=== PATIENT | male | born 1985 | race Caucasian/White ===

== ENCOUNTER 2016-06-27 19:30 | Emergency (ER) | payer SELFPAY ==
[2016-06-27 19:42] VITALS: BP 123/68; PULSE 81; TEMP 97.6; BMI 21.7
[2016-06-27] MEDS ORDERED: LORazepam 0.5 MG TABLET PO ONE (21:48)
[2016-06-27] MEDS ORDERED: ALPRAZolam 0.25 MG TABLET PO ONE (21:49)
[2016-06-27] MEDS ORDERED: ALPRAZolam 0.25 MG TABLET ONE (21:58)
[2016-06-27] MEDS ORDERED: LORazepam 0.5 MG TABLET ONE (21:58)
--- NOTE | 2016-06-27 22:01 | PDOC ---
History of Present Illness - General Chief Complaint: Alcohol intoxication Stated Complaint: DETOX Time Seen by Provider: 06/27/16 21:32 History Source: Patient Exam Limitations: No Limitations - History of Present Illness Initial Comments: CHIEF COMPLAINT: 31 y/o afebrile male with no significant PMH here for detox from heroin. HISTORY OF PRESENT ILLNESS: The patient states he has been using heroin for the past few months after his percocet prescription was cancelled. He states he did 2 bags this morning and now feels horrible. He states he is having cold and hot sweats, he feels anxious and nauseous. He initially went to [facility] to check in for detox but they have no beds. Vital signs on arrival are within normal limits. REVIEW OF SYSTEMS: GENERAL/CONSTITUTIONAL: No fever/chills. No weakness. No weight change. +hot/ cold sweats. HEAD, EYES, EARS, NOSE AND THROAT: No change in vision. No ear pain or discharge. No sore throat. CARDIOVASCULAR: No chest pain or shortness of breath. RESPIRATORY: No cough, wheezing, or hemoptysis. GASTROINTESTINAL: +nausea. No vomiting, diarrhea, constipation. GENITOURINARY: No dysuria, frequency, or change in urination. MUSCULOSKELETAL: No joint or muscle swelling or pain. No neck or back pain. SKIN: No rash or easy bruising. NEUROLOGIC: No headache, vertigo, loss of consciousness, or loss of sensation. PSYCHIATRIC: +anxiety PHYSICAL EXAM: GENERAL: The patient is awake, alert, and fully oriented, in no acute distress. He is ambulatory and speaks quickly. HEAD: Normal with no signs of trauma. ENT: Pupils equal, round and reactive to light, extraocular movements intact, sclera anicteric, conjunctiva clear. Neck supple. LUNGS: Clear to auscultation bilaterally. Normal excursion. No respiratory distress or use of accessory muscles. CV: RRR, S1/S2, no MRG. Cap refill < 2 sec. ABDOMEN: Soft, non-distended, non-tender even to deep palpation, no hepatomegaly or splenomegaly, no masses. EXTREMITIES: Normal range of motion, no edema. NEUROLOGICAL: Normal speech, normal gait. CN II-XII grossly intact. PSYCH: Normal mood, normal affect. SKIN: Warm, dry, normal turgor, no rashes or lesions noted. Past History - Past Medical History Allergies/Adverse Reactions: Allergies Allergy/AdvReac Type Severity Reaction Status Date / Time No Known Allergies Allergy Verified 06/27/16 19:42 Home Medications: Ambulatory Orders NK [No Known Home Medication] 06/27/16 Other medical history: denies - Psycho/Social/Smoking Cessation Hx Anxiety: No Suicidal Ideation: No Smoking History: Unknown if ever smoked Have you smoked in the past 12 months: No Information on smoking cessation initiated: No Hx Alcohol Use: No Drug/Substance Use Hx: No Substance Use Type: None *Physical Exam - Vital Signs Last Vital Signs Temp Pulse Resp BP Pulse Ox 97.6 F 81 20 123/68 98 06/27/16 19:39 06/27/16 19:39 06/27/16 19:39 06/27/16 19:39 06/27/16 19:39 Heart Score/ECG Review - ECG Intrepretation Comment:: Twelve-lead EKG was performed and reviewed by Dr. Ibanez. There is sinus bradycardia with rate of 59bpm. The axis is normal. The intervals are normal. There are no ST or T wave abnormalities. Impression: Otherwise normal twelve-lead EKG ED Treatment Course - LABORATORY CBC & Chemistry Diagram: 06/27/16 21:55 06/27/16 21:55 Medical Decision Making - Medical Decision Making A/P: 31 y/o male here for withdrawal symptoms from heroin. He also wanted detox but confirmed with [facility] there are no beds available at this time. Plan is as follows: 1. Labs 2. U tox 3. PO xanax and ativan Laboratory Tests 06/27/16 22:28 Opiates Screen Positive Benzodiazepines Screen Positive Cocaine Screen Positive labs unremarkable EKG normal Will discharge to home with instructions to call [facility] in the morning to hopefully get a placement. The patient verbalizes understanding of all instructions, has no further questions and is awaiting discharge. *DC/Admit/Observation/Transfer Diagnosis at time of Disposition: Drug abuse and dependence - Discharge Dispostion Disposition: HOME Condition at time of disposition: Improved - Patient Instructions Printed Discharge Instructions: DI for Drug Abuse and Drug Addiction Additional Instructions: Discharge Instructions: -Call [facility] in the morning to see if they have a bed -Return to the ER with any worsening or concerning symptoms
--- NOTE | 2016-06-27 22:25 | PDOC ---
[id number] 98 06/27/16 19:39 06/27/16 19:39 06/27/16 19:39 06/27/16 19:39 06/27/16 19:39 ED Treatment Course - LABORATORY CBC & Chemistry Diagram: 06/27/16 21:55 06/27/16 21:55 - Medications Given in the ED: ED Medications Discontinued Medications Generic Name Dose Route Start Last Admin Trade Name Gigiq PRN Reason Stop Dose Admin Alprazolam 0.5 mg 06/27/16 21:49 06/27/16 22:09 Xanax - PO 06/27/16 21:50 0.5 mg ONCE ONE Administration Lorazepam 0.5 mg 06/27/16 21:48 06/27/16 22:09 Ativan - PO 06/27/16 21:49 0.5 mg ONCE ONE Administration Medical Decision Making - Medical Decision Making 06/27/16 22:25 agree with care from LISANDRO Bolanos *DC/Admit/Observation/Transfer Diagnosis at time of Disposition: Drug abuse and dependence - Discharge Dispostion Disposition: HOME Condition at time of disposition: Improved - Patient Instructions Printed Discharge Instructions: DI for Drug Abuse and Drug Addiction Additional Instructions: Discharge Instructions: -Call [facility] in the morning to see if they have a bed -Return to the ER with any worsening or concerning symptoms
[2016-06-27 22:41] LABS: BASOPHIL 0.6 % (0-2.0); MCHC 34.4 g/dl (32.0-35.9); MEAN CELL VOLUME 87.3 fl (80-96); NEUTROPHILS 67.8 % (42.8-82.8); PLATELET COUNT 281 K/MM3 (134-434); RDW 12.5 % (11.9-15.9); WHITE BLOOD COUNT 10.8 K/mm3 (4.0-10.0)
[2016-06-27 22:52] LABS: ALBUMIN 3.2 g/dl (3.4-5.0); ANION GAP 9 (8-16); BILIRUBIN,TOTAL 0.2 mg/dL (0.2-1.0); CALCIUM 8.2 mg/dL (8.5-10.1); CO2 24 mmol/L (21-32); CREATININE 0.8 mg/dL (0.7-1.3); GLUCOSE,RANDOM 97 mg/dL (74-106); SGOT/AST 10 U/L (15-37); SGPT/ALT 18 U/L (12-78); TOT PROT 6.4 g/dl (6.4-8.2)
[2016-06-27 22:53] LABS: ALK PHOS 65 U/L (45-117)
[2016-06-27 22:58] LABS: URINE MARIJUANA THC NEGATIVE ng/ml (CUTOFF=50)
--- NOTE | 2016-06-29 12:26 | EKG ---
Test Reason : Blood Pressure : / mmHG Vent. Rate : 059 BPM Atrial Rate : 059 BPM P-R Int : 138 ms QRS Dur : 102 ms QT Int : 424 ms P-R-T Axes : 070 069 062 degrees QTc Int : 419 ms SINUS BRADYCARDIA WITH MARKED SINUS ARRHYTHMIA OTHERWISE NORMAL ECG NO PREVIOUS ECGS AVAILABLE Confirmed by CONNER STODDARD, SARAY ([id number]) on 06/29/2016 12:26:17 PM Referred By: Confirmed By:SARAY PRIETO MD
== END 2016-06-28 00:50 | disposition home or self-care (01) ==
LOC: JER 19:30
DX: F11.23 Opioid dependence with withdrawal (principal)
CPT/HCPCS: 36415; 80053; 80307; 85025; 93005; 93010; 99282-25

== ENCOUNTER 2017-04-09 12:31 | Inpatient (IN) | payer OTHER ==
[2017-04-09 13:52] VITALS: BMI 21.7
--- NOTE | 2017-04-09 18:41 | HP ---
COWS - Scale Resting Pulse: 2= [place] 101-120 Sweatin= Chills/Flushing Restless Observation: 3= Extraneous Movement Pupil Size: 0= Normal to Room Light Bone or Joint Aches: 2= Severe Diffuse Aches Runny Nose/ Eye Tearin= Runny Nose/Eyes GI Upset > 30mins: 1= Stomach Cramp Tremor Observation: 2= Slight Tremor Visible Yawning Observation: 0= None Anxiety or Irritability: 2=Irritable/Anxious Goose Flesh Skin: 0=Smooth Skin COWS Score: 15 Admission [facility] Chief Complaint: withdrawal sx Allergies/Adverse Reactions: Allergies Allergy/AdvReac Type Severity Reaction Status Date / Time No Known Allergies Allergy Verified 04/09/17 17:43 History of Present Illness: 32 years old male with long history of heroin nicotine dependence has anxiety and depression is admitted to detox Exam Limitations: No Limitations - Ebola screening Have you traveled outside of the country in the last 21 days: No Have you had contact with anyone from an Ebola affected area: No Have you been sick,other than usual withdrawal symptoms: No Do you have a fever: No - Review of Systems Constitutional: Loss of Appetite, Changes in sleep, Unintentional Wgt. Loss, Unexplained wgt Loss EENT: reports: No Symptoms Reported Respiratory: reports: No Symptoms reported Cardiac: reports: No Symptoms Reported GI: reports: Constipated, Poor Appetite, Poor Fluid Intake, Indigestion, Abdominal cramping : reports: No Symptoms Reported Musculoskeletal: reports: Back Pain, Joint Pain, Muscle Pain, Neck Pain Integumentary: reports: Change in Color (arms iv heroin) Neuro: reports: Tremors Endocrine: reports: No Symptoms Reported Hematology: reports: No Symptoms Reported Psychiatric: reports: Judgement Intact, Orientated x3, Anxious, Depressed Other Systems: Reviewed and Negative Patient History - Patient Medical History Hx Anemia: No Hx Asthma: No Hx Chronic Obstructive Pulmonary Disease (COPD): No Hx Cancer: No Hx Cardiac Disorders: No Hx Congestive Heart Failure: No Hx Hypertension: No Hx Hypercholesterolemia: No Hx Pacemaker: No HX Cerebrovascular Accident: No Hx Seizures: No Hx Dementia: No Hx Diabetes: No Hx Gastrointestinal Disorders: No Hx Liver Disease: No Hx Genitourinary Disorders: No Hx Sexually Transmitted Disorders: No Hx Renal Disease (ESRD): No Hx Thyroid Disease: No Hx Human Immunodeficiency Virus (HIV): No Hx Hepatitis C: No Hx Depression: Yes Hx Suicide Attempt: No Hx Bipolar Disorder: No Hx Schizophrenia: No - Patient Surgical History Past Surgical History: Yes Hx Neurologic Surgery: Yes (neck sx 02/16 spinal fusion) Hx Cataract Extraction: No Hx Cardiac Surgery: No Hx Lung Surgery: No Hx Breast Surgery: No Hx Breast Biopsy: No Hx Abdominal Surgery: No Hx Appendectomy: No Hx Cholecystectomy: No Hx Genitourinary Surgery: No Hx Orthopedic Surgery: Yes (R knee meniscus repair.2016) Anesthesia Reaction: No - PPD History Previous Implant?: Yes Documented Results: Negative w/o proof Implanted On Prior [facility] Admission?: No PPD to be Administered?: Yes - Smoking Cessation Smoking history: Current every day smoker Have you smoked in the past 12 months: Yes Aproximately how many cigarettes per day: 30 Cigars Per Day: 0 Hx Chewing Tobacco Use: No Initiated information on smoking cessation: Yes 'Breaking Loose' booklet given: 04/09/17 - Substance & Tx. History Hx Alcohol Use: No Hx Substance Use: Yes Substance Use Type: Cocaine, Heroin, Opiates Hx Substance Use Treatment: Yes (05/2016 [facility]) - Substances Abused Heroin Route: Injection Frequency: Daily Amount used: 5-15 bags Age of first use: 31 Date of Last Use: 04/09/17 Cocaine Route: Injection Frequency: 3-6 times per week Amount used: 1-2 grams Age of first use: 31 Date of Last Use: 04/09/17 Family Disease History - Family Disease History Family Disease History: Other: Father (no contact) Other Family History: only child Admission Physical Exam S - Vital Signs Vital Signs: Vital Signs - 24 hr 04/09/17 13:47 Temperature 98 F Pulse Rate 115 H Respiratory 18 Rate Blood Pressure 140/90 - Physical General Appearance: Yes: Appropriately Dressed, Moderate Distress, Thin, Tremorous, Irritable, Sweating, Anxious HEENTM: Yes: Hearing grossly Normal, Normal ENT Inspection, Normocephalic, Normal Voice Respiratory: Yes: Chest Non-Tender, Lungs Clear, Normal Breath Sounds, No Respiratory Distress, No Accessory Muscle Use Neck: Yes: Supple, Trachea in good position Breast: Yes: Breasts Symetrical Cardiology: Yes: Regular Rhythm, S1, S2, Tachycardia Abdominal: Yes: Non Tender, Soft, Decreased BS Genitourinary: Yes: Within Normal Limits Back: Yes: Normal Inspection Musculoskeletal: Yes: full range of Motion, Gait Steady, Back pain, Muscle Pain Extremities: Yes: Normal Range of Motion, Non-Tender, Tremors Neurological: Yes: Fully Oriented, Alert, Motor Strength 5/5, Normal Response, Depressed Affect Integumentary: Yes: Warm, Track Mccormick Lymphatic: Yes: Within Normal Limits - Diagnostic (1) Opioid dependence with withdrawal Current Visit: Yes Status: Acute (2) Weight loss Current Visit: Yes Status: Acute (3) GERD (gastroesophageal reflux disease) Current Visit: Yes Status: Chronic Qualifiers: Esophagitis presence: without esophagitis Qualified Code(s): K21.9 - Gastro -esophageal reflux disease without esophagitis (4) Anxiety and depression Current Visit: Yes Status: Suspected (5) Nicotine dependence Current Visit: Yes Status: Acute Qualifiers: Nicotine product type: cigarettes Substance use status: in withdrawal Qualified Code(s): F17.213 - Nicotine dependence, cigarettes, with withdrawal Cleared for Admission [facility] - Detox or Rehab [facility] Level of Care: Medically Managed Detox Regimen/Protocol: Methadone [facility] Breath Alcohol Content Breath Alcohol Content: 0 Urine Drug Screen - Results Drug Screen Negative: No Urine Drug Screen Results: NATE-Cocaine, OPI-Opiates, OXY-Oxycodone
[2017-04-09] MEDS ORDERED: MAGNESIUM HYDROX 2400MG/30ML ORAL SUSPENSION 30 ML CUP PO PRN (18:43)
[2017-04-09] MEDS ORDERED: guaiFENesin/D-METHORPHAN HB 10 ML UNIT-DOSE CUPS PO PRN (18:43)
[2017-04-09] MEDS ORDERED: MAGNESIUM CITRATE 300 ML BOTTLE PO PRN (18:43)
[2017-04-09] MEDS ORDERED: P-EPHED 60MG/TRIPROLIDI 2.5MG TABLET PO PRN (18:43)
[2017-04-09] MEDS ORDERED: MENTHOL/PHENOL 1 EACH UD MM PRN (18:43)
[2017-04-09] MEDS ORDERED: MAG HYDROX/AL HYDROX/SIMETH 30 ML UNIT-DOSE CUP PO PRN (18:43)
[2017-04-09] MEDS ORDERED: METHADONE HCL 10 MG TABLET (FOR DETOX USE ONLY) PO ONE ×2 (18:43→23:00)
[2017-04-09] MEDS ORDERED: LOPERAMIDE HCL 2 MG CAPSULE PO PRN (18:43)
[2017-04-09] MEDS ORDERED: cloNIDine HCL 0.1 MG TABLET PO PRN (18:48)
[2017-04-09] MEDS: diazePAM 5 MG TABLET PO PRN (20:09)
[2017-04-09] MEDS: NICOTINE POLACRILEX 4 MG GUM BC PRN (20:14)
[2017-04-09] MEDS: THIAMINE HCL 100 MG TABLET (FP) PO SCH (22:18)
[2017-04-09] MEDS: NAPROXEN 500 MG TABLET (FP) PO SCH (22:18)
[2017-04-09] MEDS: GABAPENTIN 100 MG CAPSULE (FP) PO SCH (22:18)
[2017-04-09] MEDS: METHOCARBAMOL 500 MG TABLET PO SCH (22:19)
[2017-04-09] MEDS: RANITIDINE HCL 150 MG TABLET (FP) PO SCH (22:19)
[2017-04-10 03:09] LABS: URINE APPEARANCE CLOUDY; URINE BILIRUBIN NEGATIVE (NEGATIVE); URINE BLOOD NEGATIVE (NEGATIVE); URINE COLOR AMBER; URINE GLUCOSE (UA) NEGATIVE (NEGATIVE); URINE KETONE NEGATIVE (NEGATIVE); URINE LEUK ESTERASE TRACE (NEGATIVE); URINE NITRITE NEGATIVE (NEGATIVE); URINE PROTEIN NEGATIVE (NEGATIVE); URINE UROBILINOGEN NEGATIVE mg/dL (0.2-1.0)
[2017-04-10 03:48] LABS: URINE MUCUS FEW
[2017-04-10] MEDS: diazePAM 5 MG TABLET PO PRN ×4 (05:54→20:19)
[2017-04-10] MEDS: GABAPENTIN 100 MG CAPSULE (FP) PO SCH ×3 (05:54→22:08)
[2017-04-10] MEDS: METHOCARBAMOL 500 MG TABLET PO SCH ×3 (05:54→22:08)
[2017-04-10] MEDS ORDERED: METHADONE HCL 10 MG TABLET (FOR DETOX USE ONLY) PO ONE (10:00)
[2017-04-10] MEDS: RANITIDINE HCL 150 MG TABLET (FP) PO SCH ×2 (10:12→22:08)
[2017-04-10] MEDS: PRENATAL VITAMINS W/ FOLIC ACID TABLET (FP) PO SCH (10:13)
[2017-04-10] MEDS: NAPROXEN 500 MG TABLET (FP) PO SCH ×2 (10:13→22:08)
[2017-04-10] MEDS: NICOTINE 21 MG/24 HOURS TOPICAL PATCH TD SCH (10:13)
[2017-04-10 10:14] LABS: ALBUMIN 3.5 g/dl (3.4-5.0); ANION GAP 6 (8-16); BLOOD UREA NITROGEN 16 mg/dL (7-18); CALCIUM 8.9 mg/dL (8.5-10.1); CHLORIDE 105 mmol/L (98-107); CO2 29 mmol/L (21-32); CREATININE 0.8 mg/dL (0.7-1.3); GLUCOSE,RANDOM 101 mg/dL (74-106); POTASSIUM 4.4 mmol/L (3.5-5.1); SGOT/AST 7 U/L (15-37); SGPT/ALT 22 U/L (12-78); SODIUM 140 mmol/L (136-145)
[2017-04-10 10:16] LABS: ALK PHOS 79 U/L (45-117); BILIRUBIN,TOTAL 0.5 mg/dL (0.2-1.0); TOT PROT 7.2 g/dl (6.4-8.2)
[2017-04-10 10:27] LABS: HEMOGLOBIN 12.2 GM/dL (11.7-16.9); MCH 27.8 pg (25.7-33.7); MEAN CELL VOLUME 84.3 fl (80-96); PLATELET COUNT 298 K/MM3 (134-434); RBC 4.38 M/mm3 (4.00-5.60); RDW 15.7 % (11.9-15.9); WHITE BLOOD COUNT 9.3 K/mm3 (4.0-10.0)
--- NOTE | 2017-04-10 10:29 | PN ---
BHS COWS - Scale Resting Pulse: 0= TN 80 or Below Sweatin= Chills/Flushing Restless Observation: 3= Extraneous Movement Pupil Size: 2= Moderately Dilated Bone or Joint Aches: 4=Acute Joint/Muscle Pain Runny Nose/ Eye Tearin= Nasal Congestion GI Upset > 30mins: 1= Stomach Cramp Tremor Observation of Outstretched Hands: 2= Slight Tremor Visible Yawning Observation: 2= >3x During Session Anxiety or Irritability: 2=Irritable/Anxious Goose Flesh Skin: 0=Smooth Skin COWS Score: 18 BHS Progress Note (SOAP) Subjective: ANXIETY,SWEATS,FATIGUE. Objective: 04/10/17 10:27 Vital Signs Temperature 96.0 F L 04/10/17 09:51 Pulse Rate 71 04/10/17 09:51 Respiratory Rate 18 04/10/17 09:51 Blood Pressure 126/82 04/10/17 09:51 O2 Sat by Pulse Oximetry (%) Laboratory Last Values Sodium 140 mmol/L (136-145) 04/10/17 08:00 Potassium 4.4 mmol/L (3.5-5.1) 04/10/17 08:00 Chloride 105 mmol/L (98-107) 04/10/17 08:00 Carbon Dioxide 29 mmol/L (21-32) D 04/10/17 08:00 Anion Gap 6 (8-16) L 04/10/17 08:00 BUN 16 mg/dL (7-18) D 04/10/17 08:00 Creatinine 0.8 mg/dL (0.7-1.3) 04/10/17 08:00 Creat Clearance w eGFR > 60 (>60) 04/10/17 08:00 Random Glucose 101 mg/dL (74-106) 04/10/17 08:00 Calcium 8.9 mg/dL (8.5-10.1) 04/10/17 08:00 Total Bilirubin 0.5 mg/dL (0.2-1.0) D 04/10/17 08:00 AST 7 U/L (15-37) L D 04/10/17 08:00 ALT 22 U/L (12-78) D 04/10/17 08:00 Alkaline Phosphatase 79 U/L (45-117) D 04/10/17 08:00 Total Protein 7.2 g/dl (6.4-8.2) 04/10/17 08:00 Albumin 3.5 g/dl (3.4-5.0) 04/10/17 08:00 Urine Color Jyoti 04/09/17 06:30 Urine Appearance Cloudy 04/09/17 06:30 Urine pH 7.0 (5.0-8.0) 04/09/17 06:30 Ur Specific [place] 1.023 (1.001-1.035) 04/09/17 06:30 Urine Protein Negative (NEGATIVE) 04/09/17 06:30 Urine Glucose (UA) Negative (NEGATIVE) 04/09/17 06:30 Urine Ketones Negative (NEGATIVE) 04/09/17 06:30 Urine Blood Negative (NEGATIVE) 04/09/17 06:30 Urine Nitrite Negative (NEGATIVE) 04/09/17 06:30 Urine Bilirubin Negative (NEGATIVE) 04/09/17 06:30 Urine Urobilinogen Negative mg/dL (0.2-1.0) 04/09/17 06:30 Ur Leukocyte Esterase Trace (NEGATIVE) 04/09/17 06:30 Urine WBC (Auto) 16 /hpf (3-5) 04/09/17 06:30 Urine RBC (Auto) 3 /hpf (0-3) 04/09/17 06:30 Urine Mucus Few 04/09/17 06:30 LABS AND UA NOTED Assessment: 04/10/17 10:28 WITHDRAWAL SX Plan: CONTINUE DETOX REPEAT UA; UC
--- NOTE | 2017-04-10 12:02 | CONSULT ---
[facility] Psychiatric Consult - Data Date of interview: 04/10/17 Admission source: [facility] Identifying data: First admission to [facility] for this 32 y/o male seeking detox treatment on for heroin and cocaine dependence.Patient is ,a father of two,domiciled and currently supported on Workman's Compensation benefits. Substance Abuse History: Confirmed by patient in this interview.See details in current [facility] report : Smoking history: Current every day smoker. Have you smoked in the past 12 months: Yes. Aproximately how many cigarettes per day: 30. Cigars Per Day: 0. Hx Chewing Tobacco Use: No. Initiated information on smoking cessation: Yes. 'Breaking Loose' booklet given: 04/09/17. - Substance & Tx. History. Hx Alcohol Use: No. Hx Substance Use: Yes. Substance Use Type : Cocaine, Heroin, Opiates. Hx Substance Use Treatment: Yes (05/2016 [facility]). - Substances Abused. Heroin. Route: Injection. Frequency: Daily. Amount used: 5-15 bags. Age of first use: 31. Date of Last Use: 04/09/17. Cocaine. Route: Injection. Frequency: 3-6 times per week. Amount used: 1-2 grams. Age of first use: 31. Date of Last Use: 04/09/17 Medical History: Recent injury to cervical spine (job-related),spinal fusion () and past history of orthosurgery (torn meniscus in right knee). Psychiatric History: No reported history of psychiatric hospitalizations.Patient admits to a brief contact with a private psychiatrist ( 2015) to address anxiety.Was prescribed xanax and adderall.Dropped out of [facility] care in May 2016.Stopped his psychotropic medications.Mr Sanchez denies history of suicide attempts. Physical/Sexual Abuse/Trauma History: Patient denies history of abuse. Additional Comment: Urine Drug Screen Results: NATE-Cocaine, OPI-Opiates, OXY- Oxycodone.Noted. Mental Status Exam - Mental Status Exam Alert and Oriented to: Time, Place, Person Cognitive Function: Good Patient Appearance: Unkempt, Disheveled Mood: Nervous, Withdrawn, Anxious Affect: Mood Congruent, Constricted Patient Behavior: Fatigued, Appropriate (friendly on approach), Cooperative Speech Pattern: Clear, Appropriate Voice Loudness: Normal Thought Process: Intact, Goal Oriented Thought Disorder: Not Present Hallucinations: Denies Suicidal Ideation: Denies Homicidal Ideation: Denies Insight/Judgement: Poor Sleep: Poorly, Difficulty falling asleep (wants trazodone) Appetite: Good Muscle strength/Tone: Normal (no complaint of rigidity or weakness) Gait/Station: Normal Psychiatric Findings - Problem List ([place] 1, 2,3) (1) Nicotine dependence Current Visit: Yes Status: Acute Qualifiers: Nicotine product type: cigarettes Substance use status: in withdrawal Qualified Code(s): F17.213 - Nicotine dependence, cigarettes, with withdrawal (2) Opioid dependence with withdrawal Current Visit: Yes Status: Acute (3) Cocaine dependence Current Visit: Yes Status: Acute (4) Substance induced mood disorder Current Visit: Yes Status: Acute (5) Insomnia Current Visit: Yes Status: Acute - Initial Treatment Plan Initial Treatment Plan: Psychoeducation and support provided in session.Sleep hygiene discussed.Detoxification in progress.Trazodone 100 mg po hs (patient's specific request).Mr Sanchez endorses history of good response/tolerability to that medication.Made aware of risk of priapism.Consent (verbal) given for the inclusion of trazodone in current regimen of medications.Observation.
--- NOTE | 2017-04-10 15:19 | EKG ---
Test Reason : Blood Pressure : / mmHG Vent. Rate : 085 BPM Atrial Rate : 085 BPM P-R Int : 130 ms QRS Dur : 090 ms QT Int : 376 ms P-R-T Axes : 073 073 064 degrees QTc Int : 447 ms NORMAL SINUS RHYTHM NORMAL ECG WHEN COMPARED WITH ECG OF 27-JUN-2016 23:34, NO SIGNIFICANT CHANGE WAS FOUND Confirmed by Maged Gupta MD ([id number]) on 04/10/2017 3:18:50 PM Referred By: Confirmed By:Maged Gupta MD
[2017-04-10] MEDS: NICOTINE POLACRILEX 4 MG GUM BC PRN ×2 (18:12→22:10)
[2017-04-10 18:26] LABS: URINE APPEARANCE CLEAR; URINE BILIRUBIN NEGATIVE (NEGATIVE); URINE BLOOD NEGATIVE (NEGATIVE); URINE COLOR YELLOW; URINE GLUCOSE (UA) NEGATIVE (NEGATIVE); URINE KETONE NEGATIVE (NEGATIVE); URINE LEUK ESTERASE TRACE (NEGATIVE); URINE NITRITE NEGATIVE (NEGATIVE); URINE PROTEIN NEGATIVE (NEGATIVE); URINE UROBILINOGEN 4.0 E.U/dl mg/dL (0.2-1.0)
[2017-04-10 18:44] LABS: URINE MUCUS RARE
[2017-04-10] MEDS: traZODone HCL 100 MG TABLET (FP) PO SCH (22:08)
[2017-04-10] MEDS: THIAMINE HCL 100 MG TABLET (FP) PO SCH (22:08)
[2017-04-11] MEDS: diazePAM 5 MG TABLET PO PRN ×4 (00:59→22:10)
[2017-04-11] MEDS: GABAPENTIN 100 MG CAPSULE (FP) PO SCH ×3 (05:27→22:10)
[2017-04-11] MEDS: METHOCARBAMOL 500 MG TABLET PO SCH ×3 (05:27→22:10)
[2017-04-11] MEDS ORDERED: METHADONE HCL 5 MG TABLET (FOR DETOX USE ONLY) PO ONE (10:00)
[2017-04-11] MEDS: NAPROXEN 500 MG TABLET (FP) PO SCH ×2 (10:23→22:10)
[2017-04-11] MEDS: PRENATAL VITAMINS W/ FOLIC ACID TABLET (FP) PO SCH (10:23)
[2017-04-11] MEDS: RANITIDINE HCL 150 MG TABLET (FP) PO SCH ×2 (10:23→22:10)
[2017-04-11] MEDS: NICOTINE 21 MG/24 HOURS TOPICAL PATCH TD SCH (10:24)
--- NOTE | 2017-04-11 12:07 | PN ---
BHS COWS - Scale Resting Pulse: 0= TN 80 or Below Sweatin= Chills/Flushing Restless Observation: 3= Extraneous Movement Pupil Size: 0= Normal to Room Light Bone or Joint Aches: 2= Severe Diffuse Aches Runny Nose/ Eye Tearin= Nasal Congestion GI Upset > 30mins: 0= None Tremor Observation of Outstretched Hands: 2= Slight Tremor Visible Yawning Observation: 1= 1-2x During Session Anxiety or Irritability: 2=Irritable/Anxious Goose Flesh Skin: 0=Smooth Skin COWS Score: 12 BHS Progress Note (SOAP) Subjective: ANXIETY,SWEATS,INTERMITTENT SLEEP. Objective: 04/11/17 11:57 Vital Signs Temperature 96.1 F L 04/11/17 10:04 Pulse Rate 69 04/11/17 10:04 Respiratory Rate 16 04/11/17 10:04 Blood Pressure 123/84 04/11/17 10:04 O2 Sat by Pulse Oximetry (%) Laboratory Last Values WBC 9.3 K/mm3 (4.0-10.0) 04/10/17 08:00 RBC 4.38 M/mm3 (4.00-5.60) 04/10/17 08:00 Hgb 12.2 GM/dL (11.7-16.9) 04/10/17 08:00 Hct 37.0 % (35.4-49) 04/10/17 08:00 MCV 84.3 fl (80-96) 04/10/17 08:00 MCH 27.8 pg (25.7-33.7) 04/10/17 08:00 MCHC 33.0 g/dl (32.0-35.9) 04/10/17 08:00 RDW 15.7 % (11.9-15.9) D 04/10/17 08:00 Plt Count 298 K/MM3 (134-434) 04/10/17 08:00 MPV 8.0 fl (7.5-11.1) 04/10/17 08:00 Sodium 140 mmol/L (136-145) 04/10/17 08:00 Potassium 4.4 mmol/L (3.5-5.1) 04/10/17 08:00 Chloride 105 mmol/L (98-107) 04/10/17 08:00 Carbon Dioxide 29 mmol/L (21-32) D 04/10/17 08:00 Anion Gap 6 (8-16) L 04/10/17 08:00 BUN 16 mg/dL (7-18) D 04/10/17 08:00 Creatinine 0.8 mg/dL (0.7-1.3) 04/10/17 08:00 Creat Clearance w eGFR > 60 (>60) 04/10/17 08:00 Random Glucose 101 mg/dL (74-106) 04/10/17 08:00 Calcium 8.9 mg/dL (8.5-10.1) 04/10/17 08:00 Total Bilirubin 0.5 mg/dL (0.2-1.0) D 04/10/17 08:00 AST 7 U/L (15-37) L D 04/10/17 08:00 ALT 22 U/L (12-78) D 04/10/17 08:00 Alkaline Phosphatase 79 U/L (45-117) D 04/10/17 08:00 Total Protein 7.2 g/dl (6.4-8.2) 04/10/17 08:00 Albumin 3.5 g/dl (3.4-5.0) 04/10/17 08:00 Urine Color Yellow 04/10/17 18:00 Urine Appearance Clear 04/10/17 18:00 Urine pH 7.0 (5.0-8.0) 04/10/17 18:00 Ur Specific [place] 1.018 (1.001-1.035) 04/10/17 18:00 Urine Protein Negative (NEGATIVE) 04/10/17 18:00 Urine Glucose (UA) Negative (NEGATIVE) 04/10/17 18:00 Urine Ketones Negative (NEGATIVE) 04/10/17 18:00 Urine Blood Negative (NEGATIVE) 04/10/17 18:00 Urine Nitrite Negative (NEGATIVE) 04/10/17 18:00 Urine Bilirubin Negative (NEGATIVE) 04/10/17 18:00 Urine Urobilinogen 4.0 e.u/dl mg/dL (0.2-1.0) 04/10/17 18:00 Ur Leukocyte Esterase Trace (NEGATIVE) 04/10/17 18:00 Urine WBC (Auto) 6 /hpf (3-5) 04/10/17 18:00 Urine RBC (Auto) 1 /hpf (0-3) 04/10/17 18:00 Urine Mucus Rare 04/10/17 18:00 RPR Titer Nonreactive (NONREACTIVE) 04/10/17 08:00 Hepatitis C Antibody 0.1 s/co ratio (0.0-0.9) 04/09/17 08:00 HIV 1&2 Antibody Screen Negative 04/10/17 08:00 HIV P24 Antigen Negative 04/10/17 08:00 Assessment: 04/11/17 11:57 WITHDRAWAL SX Plan: CONTINUE DETOX.
[2017-04-11] MEDS: ACETAMINOPHEN 325 MG TABLET (FP) PO PRN (15:56)
[2017-04-11] MEDS: NICOTINE POLACRILEX 4 MG GUM BC PRN (21:30)
[2017-04-11] MEDS: traZODone HCL 100 MG TABLET (FP) PO SCH (22:10)
[2017-04-11] MEDS: THIAMINE HCL 100 MG TABLET (FP) PO SCH (22:10)
[2017-04-12] MEDS: GABAPENTIN 100 MG CAPSULE (FP) PO SCH ×3 (05:24→22:07)
[2017-04-12] MEDS: diazePAM 5 MG TABLET PO PRN ×3 (05:24→15:04)
[2017-04-12] MEDS: METHOCARBAMOL 500 MG TABLET PO SCH ×3 (05:24→22:07)
[2017-04-12] MEDS ORDERED: METHADONE HCL 5 MG TABLET (FOR DETOX USE ONLY) PO ONE (10:00)
[2017-04-12] MEDS: NICOTINE 21 MG/24 HOURS TOPICAL PATCH TD SCH (10:09)
[2017-04-12] MEDS: RANITIDINE HCL 150 MG TABLET (FP) PO SCH ×2 (10:09→22:07)
[2017-04-12] MEDS: NAPROXEN 500 MG TABLET (FP) PO SCH ×2 (10:09→22:07)
[2017-04-12] MEDS: PRENATAL VITAMINS W/ FOLIC ACID TABLET (FP) PO SCH (10:09)
[2017-04-12] MEDS: NICOTINE POLACRILEX 4 MG GUM BC PRN ×2 (10:15→19:25)
--- NOTE | 2017-04-12 10:39 | PN ---
BHS Progress Note (SOAP) Subjective: ANXIETY, HOT/COLD SWEATS. Objective: 04/12/17 10:38 Vital Signs Temperature 95.0 F L 04/12/17 09:24 Pulse Rate 74 04/12/17 09:24 Respiratory Rate 18 04/12/17 09:24 Blood Pressure 114/78 04/12/17 09:24 O2 Sat by Pulse Oximetry (%) Laboratory Last Values WBC 9.3 K/mm3 (4.0-10.0) 04/10/17 08:00 RBC 4.38 M/mm3 (4.00-5.60) 04/10/17 08:00 Hgb 12.2 GM/dL (11.7-16.9) 04/10/17 08:00 Hct 37.0 % (35.4-49) 04/10/17 08:00 MCV 84.3 fl (80-96) 04/10/17 08:00 MCH 27.8 pg (25.7-33.7) 04/10/17 08:00 MCHC 33.0 g/dl (32.0-35.9) 04/10/17 08:00 RDW 15.7 % (11.9-15.9) D 04/10/17 08:00 Plt Count 298 K/MM3 (134-434) 04/10/17 08:00 MPV 8.0 fl (7.5-11.1) 04/10/17 08:00 Sodium 140 mmol/L (136-145) 04/10/17 08:00 Potassium 4.4 mmol/L (3.5-5.1) 04/10/17 08:00 Chloride 105 mmol/L (98-107) 04/10/17 08:00 Carbon Dioxide 29 mmol/L (21-32) D 04/10/17 08:00 Anion Gap 6 (8-16) L 04/10/17 08:00 BUN 16 mg/dL (7-18) D 04/10/17 08:00 Creatinine 0.8 mg/dL (0.7-1.3) 04/10/17 08:00 Creat Clearance w eGFR > 60 (>60) 04/10/17 08:00 Random Glucose 101 mg/dL (74-106) 04/10/17 08:00 Calcium 8.9 mg/dL (8.5-10.1) 04/10/17 08:00 Total Bilirubin 0.5 mg/dL (0.2-1.0) D 04/10/17 08:00 AST 7 U/L (15-37) L D 04/10/17 08:00 ALT 22 U/L (12-78) D 04/10/17 08:00 Alkaline Phosphatase 79 U/L (45-117) D 04/10/17 08:00 Total Protein 7.2 g/dl (6.4-8.2) 04/10/17 08:00 Albumin 3.5 g/dl (3.4-5.0) 04/10/17 08:00 Urine Color Yellow 04/10/17 18:00 Urine Appearance Clear 04/10/17 18:00 Urine pH 7.0 (5.0-8.0) 04/10/17 18:00 Ur Specific [place] 1.018 (1.001-1.035) 04/10/17 18:00 Urine Protein Negative (NEGATIVE) 04/10/17 18:00 Urine Glucose (UA) Negative (NEGATIVE) 04/10/17 18:00 Urine Ketones Negative (NEGATIVE) 04/10/17 18:00 Urine Blood Negative (NEGATIVE) 04/10/17 18:00 Urine Nitrite Negative (NEGATIVE) 04/10/17 18:00 Urine Bilirubin Negative (NEGATIVE) 04/10/17 18:00 Urine Urobilinogen 4.0 e.u/dl mg/dL (0.2-1.0) 04/10/17 18:00 Ur Leukocyte Esterase Trace (NEGATIVE) 04/10/17 18:00 Urine WBC (Auto) 6 /hpf (3-5) 04/10/17 18:00 Urine RBC (Auto) 1 /hpf (0-3) 04/10/17 18:00 Urine Mucus Rare 04/10/17 18:00 RPR Titer Nonreactive (NONREACTIVE) 04/10/17 08:00 Hepatitis C Antibody 0.1 s/co ratio (0.0-0.9) 04/09/17 08:00 HIV 1&2 Antibody Screen Negative 04/10/17 08:00 HIV P24 Antigen Negative 04/10/17 08:00 UC PENDING Assessment: 04/12/17 10:38 WITHDRAWAL SX Plan: CONTINUE DETOX
--- NOTE | 2017-04-12 14:29 | PN ---
Psychiatric Progress Note Vital Signs: Vital Signs Period Temp Pulse Resp BP Sys/Carlson Pulse Ox Last 24 Hr 95.0 F-97.1 F 65-91 18-20 108-122/60-78 Date of Session: 04/12/17 Chief Complaint:: "The trazodone is making me sweat profusely." HPI: Pt. is a 32 year old male with a history of heroin and cocaine dependence. ROS: unremarkable. Current Medications: Active Medications Generic Name Dose Route Start Last Admin Trade Name Freq PRN Reason Stop Dose Admin Acetaminophen 650 mg 04/09/17 18:43 04/11/17 15:56 Tylenol - PO 650 mg Q4H PRN Administration FEVER OR PAIN Al Hydroxide/Mg Hydroxide 30 ml 04/09/17 18:43 Mylanta Oral Suspension - PO Q6H PRN DYSPEPSIA Diazepam 10 mg 04/09/17 18:43 04/12/17 10:11 Valium - PO 04/12/17 18:42 10 mg Q4H PRN Administration WITHDRAWAL(CONT SUBST) Eucalyptus/Menthol/Phenol/Sorbitol 1 each 04/09/17 18:43 Cepastat Lozenge - MM Q4H PRN SORE THROAT Gabapentin 100 mg 04/09/17 22:00 04/12/17 13:42 Neurontin - PO 100 mg TID MELISSA Administration Guaifenesin 10 ml 04/09/17 18:43 Robitussin Dm - PO Q6H PRN COUGH Loperamide HCl 4 mg 04/09/17 18:43 Imodium - PO Q6H PRN DIARRHEA Magnesium Citrate 300 ml 04/09/17 18:43 Citroma - PO Q48H PRN CONSTIPATION Magnesium Hydroxide 30 ml 04/09/17 18:43 Milk Of Magnesia - PO DAILY PRN CONSTIPATION Methadone HCl 5 mg 04/14/17 06:00 Dolophine - PO 04/14/17 06:01 ONCE@0600 ONE Methadone HCl 10 mg 04/13/17 10:00 Dolophine - PO 04/13/17 10:01 ONCE ONE Methocarbamol 500 mg 04/09/17 22:00 04/12/17 13:42 Robaxin - PO 500 mg TID MELISSA Administration Naproxen 500 mg 04/09/17 22:00 04/12/17 10:09 Naprosyn - PO 500 mg BID MELISSA Administration Nicotine 21 mg 04/10/17 10:00 04/12/17 10:09 Nicoderm Patch - TD 21 mg DAILY MELISSA Administration Nicotine Polacrilex 4 mg 04/09/17 18:43 04/12/17 10:15 Nicorette Gum - BC 4 mg Q2H PRN Administration NICOTINE REPLACEMENT RX Multivit/Folic Acid/Iron 1 tab 04/10/17 10:00 04/12/17 10:09 Vitamins (Sjr) - PO 1 tab DAILY MELISSA Administration Pseudoephedrine/Triprolidine 1 combo 04/09/17 18:43 04/11/17 22:11 Actifed - PO 1 combo TID PRN Administration NASAL CONGESTION Ranitidine HCl 150 mg 04/09/17 22:00 04/12/17 10:09 Zantac - PO 150 mg BID MELISSA Administration Thiamine HCl 100 mg 04/09/17 22:00 04/11/17 22:10 Vitamin B1 - PO 100 mg HS MELISSA Administration Trazodone HCl 100 mg 04/10/17 22:00 04/11/17 22:10 Desyrel - PO 100 mg HS MELISSA Administration Medication(s) Change(s): Yes. Will discontinue trazodone 100mg. Ambien 10qhs prn ordered for insomnia. Current Side Effect: No Lab tests ordered: No Lab tests reviewed: Yes Provider note:: [employer] Specialist met with patient in reference to the psychiatric reconsultation. Pt. c/o difficulty sleeping and sweating profusely when taking trazodone. Requesting ambien in place of trazodone 100mg. Pt. reports favorable effect from previously taking ambien in the past. Sleep hygiene provided. Pt. aware of the side effects (sleep walking) of ambien. Verbal consent given. Will continue to monitor patient. Total face to face time:: 25 Mental Status Exam - Mental Status Exam Alert and Oriented to: Time, Place, Person Cognitive Function: Good Patient Appearance: Well Groomed Mood: Anxious Affect: Mood Congruent Patient Behavior: Talkative Speech Pattern: Pressured Voice Loudness: Normal Thought Process: Goal Oriented Thought Disorder: Not Present Hallucinations: Denies Suicidal Ideation: Denies Homicidal Ideation: Denies Insight/Judgement: Poor Sleep: Poorly Appetite: Fair Muscle strength/Tone: Normal Gait/Station: Normal Psychiatric Treatment Plan - Problem List (1) Cocaine dependence Current Visit: Yes (2) Insomnia Current Visit: Yes (3) Nicotine dependence Current Visit: Yes Qualifiers: Nicotine product type: cigarettes Substance use status: in withdrawal Qualified Code(s): F17.213 - Nicotine dependence, cigarettes, with withdrawal (4) Opioid dependence with withdrawal Current Visit: Yes (5) Substance induced mood disorder Current Visit: Yes
[2017-04-12] MEDS: ACETAMINOPHEN 325 MG TABLET (FP) PO PRN (17:17)
[2017-04-12] MEDS ORDERED: LIDOCAINE VISCOUS 2% ORAL/TOP 20 ML UNIT-DOSE CUP MM PRN (20:03)
[2017-04-12] MEDS ORDERED: ZOLPIDEM TARTRATE 10 MG TABLET (PARK CARE ONLY) PO PRN (22:00)
[2017-04-12] MEDS: THIAMINE HCL 100 MG TABLET (FP) PO SCH (22:07)
[2017-04-13] MEDS: GABAPENTIN 100 MG CAPSULE (FP) PO SCH (05:09)
[2017-04-13] MEDS: METHOCARBAMOL 500 MG TABLET PO SCH (05:09)
[2017-04-13] MEDS ORDERED: METHADONE HCL 5 MG TABLET (FOR DETOX USE ONLY) PO ONE (08:42)
[2017-04-13] MEDS ORDERED: METHADONE HCL 5 MG TABLET (FOR DETOX USE ONLY) ONE (09:40)
[2017-04-13] MEDS: PRENATAL VITAMINS W/ FOLIC ACID TABLET (FP) PO SCH (09:42)
[2017-04-13] MEDS: NAPROXEN 500 MG TABLET (FP) PO SCH (09:42)
[2017-04-13] MEDS: RANITIDINE HCL 150 MG TABLET (FP) PO SCH (09:42)
[2017-04-13] MEDS: NICOTINE 21 MG/24 HOURS TOPICAL PATCH TD SCH (09:44)
[2017-04-13 09:45] VITALS: BP 138/84; PULSE 85; TEMP 97
[2017-04-13] MEDS ORDERED: METHADONE HCL 10 MG TABLET (FOR DETOX USE ONLY) PO ONE (10:00)
[2017-04-14] MEDS ORDERED: METHADONE HCL 5 MG TABLET (FOR DETOX USE ONLY) PO ONE (06:00)
== END 2017-04-13 09:45 | disposition home or self-care (01) | DRG 773 ==
LOC: YASAS 12:31 → Y3N 18:06
PROVIDERS: ADMIT Internal Medicine; ATTEND Internal Medicine
PROC: HZ2ZZZZ Detoxification Services for Substance Abuse Treatment (ICD-10-PCS; principal; 2017-04-09)
DX: F11.23 Opioid dependence with withdrawal (principal); F14.20 Cocaine dependence, uncomplicated; F17.210 Nicotine dependence, cigarettes, uncomplicated; F19.24 Other psychoactive substance dependence with psychoactive substance-induced mood disorder; F41.8 Other specified anxiety disorders; G47.00 Insomnia, unspecified; R63.4 Abnormal weight loss; Z68.21 Body mass index [BMI] 21.0-21.9, adult; K21.9 Gastro-esophageal reflux disease without esophagitis
CPT/HCPCS: 36415; 80053; 81003; 81015; 85027; 86593; 86803; 87086; 87389; 93005; 93010

== ENCOUNTER 2017-05-07 10:15 | Inpatient (IN) | payer OTHER ==
[2017-05-07 12:04] VITALS: BMI 23.6
--- NOTE | 2017-05-07 13:08 | HP ---
COWS - Scale Resting Pulse: 0= [place] 80 or Below Sweatin=Flushed/Facial Moisture Restless Observation: 1= Difficult to Sit Still Pupil Size: 0= Normal to Room Light Bone or Joint Aches: 2= Severe Diffuse Aches Runny Nose/ Eye Tearin= Runny Nose/Eyes GI Upset > 30mins: 0= None Tremor Observation: 2= Slight Tremor Visible Yawning Observation: 2= >3x During Session Anxiety or Irritability: 2=Irritable/Anxious Goose Flesh Skin: 3=Piloerection COWS Score: 16 Admission ROS S - HPI Chief Complaint: I relapsed and need to be here for detox. Allergies/Adverse Reactions: Allergies Allergy/AdvReac Type Severity Reaction Status Date / Time No Known Allergies Allergy Verified 05/07/17 12:39 History of Present Illness: pt is a 32yr old male with a history of heroin and cocaine dependence seeking for treatment. Exam Limitations: No Limitations - Ebola screening Have you traveled outside of the country in the last 21 days: No (N) Have you had contact with anyone from an Ebola affected area: No Have you been sick,other than usual withdrawal symptoms: No Do you have a fever: No - Review of Systems Constitutional: Diaphoresis, Loss of Appetite, Night Sweats, Changes in sleep EENT: reports: Tearing Respiratory: reports: No Symptoms reported Cardiac: reports: No Symptoms Reported GI: reports: Nausea, Poor Appetite, Poor Fluid Intake : reports: No Symptoms Reported Musculoskeletal: reports: Back Pain, Muscle Pain Integumentary: reports: Flushing, Sweating Neuro: reports: Headache, Tingling, Tremors Endocrine: reports: Excessive Sweating, Flushing, Intolerance to Cold, Intolerance to Heat Hematology: reports: No Symptoms Reported Psychiatric: reports: Judgement Intact, Mood/Affect Appropiate, Orientated x3, Agitated, Anxious Other Systems: Reviewed and Negative Patient History - Patient Medical History Hx Anemia: No Hx Asthma: No Hx Chronic Obstructive Pulmonary Disease (COPD): No Hx Cancer: No Hx Cardiac Disorders: No Hx Congestive Heart Failure: No Hx Hypertension: No Hx Hypercholesterolemia: No Hx Pacemaker: No HX Cerebrovascular Accident: No Hx Seizures: No Hx Dementia: No Hx Diabetes: No Hx Gastrointestinal Disorders: Yes (acid reflux) Hx Liver Disease: No Hx Genitourinary Disorders: No Hx Sexually Transmitted Disorders: No Hx Renal Disease (ESRD): No Hx Thyroid Disease: No Hx Human Immunodeficiency Virus (HIV): No (negative) Hx Hepatitis C: No (negative) Hx Depression: No Hx Suicide Attempt: No Hx Bipolar Disorder: No Hx Schizophrenia: No Other Medical History: insomia/anxiety - Patient Surgical History Past Surgical History: Yes Hx Neurologic Surgery: Yes (neck sx 02/16 spinal fusion) Hx Cataract Extraction: No Hx Cardiac Surgery: No Hx Lung Surgery: No Hx Breast Surgery: No Hx Breast Biopsy: No Hx Abdominal Surgery: No Hx Appendectomy: No Hx Cholecystectomy: No Hx Genitourinary Surgery: No Hx Orthopedic Surgery: Yes (R knee meniscus repair.2016) Anesthesia Reaction: No - PPD History Previous Implant?: Yes Documented Results: Negative w/proof Implanted On Prior [facility] Admission?: Yes Date: 04/11/17 Results: 0 mm PPD to be Administered?: No - Reproductive History Patient is a Female of Child Bearing Age (11 -55 yrs old): No - Smoking Cessation Smoking history: Current every day smoker Have you smoked in the past 12 months: Yes Aproximately how many cigarettes per day: 30 Cigars Per Day: 0 Hx Chewing Tobacco Use: No Initiated information on smoking cessation: Yes 'Breaking Loose' booklet given: 05/07/17 - Substance & Tx. History Hx Alcohol Use: Yes Hx Substance Use: Yes Substance Use Type: Heroin Hx Substance Use Treatment: Yes (last detox 04/2017) - Substances Abused Heroin Route: Injection Frequency: Daily Amount used: 3-5 bags Age of first use: 31 Date of Last Use: 05/07/17 Cocaine Route: Injection Frequency: Daily Amount used: $50 Age of first use: 31 Date of Last Use: 05/06/17 Family Disease History - Family Disease History Family Disease History: Other: Father (no contact) Admission Physical Exam BHS - Vital Signs Vital Signs: Vital Signs - 24 hr 05/07/17 12:02 Temperature 96.8 F L Pulse Rate 80 Respiratory 20 Rate Blood Pressure 153/80 - Physical General Appearance: Yes: Appropriately Dressed, Tremorous, Irritable, Sweating, Anxious HEENTM: Yes: Normal Voice Respiratory: Yes: Lungs Clear, Normal Breath Sounds, No Respiratory Distress Neck: Yes: No masses,lesions,Nodules Breast: Yes: Within Normal Limits Cardiology: Yes: Regular Rhythm, Regular Rate, S1, S2 Abdominal: Yes: Normal Bowel Sounds, Non Tender, Flat Genitourinary: Yes: Within Normal Limits Back: Yes: Normal Inspection Musculoskeletal: Yes: full range of Motion, Back pain Extremities: Yes: Normal Capillary Refill, Normal Inspection, Non-Tender, Tremors Neurological: Yes: Fully Oriented, Alert, Normal Response Integumentary: Yes: Normal Color, Diaphoresis, Track Mccormick Lymphatic: Yes: Within Normal Limits - Diagnostic (1) Cocaine dependence Current Visit: Yes Status: Chronic Qualifiers: Substance use status: uncomplicated Qualified Code(s): F14.20 - Cocaine dependence, uncomplicated (2) Nicotine dependence Current Visit: Yes Status: Chronic Qualifiers: Nicotine product type: cigarettes Substance use status: uncomplicated Qualified Code(s): F17.210 - Nicotine dependence, cigarettes, uncomplicated (3) Opioid dependence with withdrawal Current Visit: Yes Status: Chronic (4) GERD (gastroesophageal reflux disease) Current Visit: Yes Status: Chronic Qualifiers: Esophagitis presence: without esophagitis Qualified Code(s): K21.9 - Gastro -esophageal reflux disease without esophagitis Cleared for Admission [facility] - Detox or Rehab [facility] Level of Care: Medically Managed Detox Regimen/Protocol: Methadone [facility] Breath Alcohol Content Breath Alcohol Content: 0 Urine Drug Screen - Results Drug Screen Negative: No Urine Drug Screen Results: NATE-Cocaine, OPI-Opiates, BZO-Benzodiazepines, OXY- Oxycodone
[2017-05-07] MEDS ORDERED: guaiFENesin/D-METHORPHAN HB 10 ML UNIT-DOSE CUPS PO PRN (13:13)
[2017-05-07] MEDS ORDERED: P-EPHED 60MG/TRIPROLIDI 2.5MG TABLET PO PRN (13:13)
[2017-05-07] MEDS ORDERED: IBUPROFEN 400 MG TABLET (FP) PO PRN (13:13)
[2017-05-07] MEDS ORDERED: MENTHOL/PHENOL 1 EACH UD MM PRN (13:13)
[2017-05-07] MEDS ORDERED: LOPERAMIDE HCL 2 MG CAPSULE PO PRN (13:13)
[2017-05-07] MEDS ORDERED: MAGNESIUM CITRATE 300 ML BOTTLE PO PRN (13:13)
[2017-05-07] MEDS ORDERED: MAGNESIUM HYDROX 2400MG/30ML ORAL SUSPENSION 30 ML CUP PO PRN (13:13)
[2017-05-07] MEDS ORDERED: MAG HYDROX/AL HYDROX/SIMETH 30 ML UNIT-DOSE CUP PO PRN (13:13)
[2017-05-07] MEDS ORDERED: METHADONE HCL 10 MG TABLET (FOR DETOX USE ONLY) PO ONE ×2 (13:39→23:00)
--- NOTE | 2017-05-07 13:59 | CONSULT ---
[facility] Psychiatric Consult - Data Date of interview: 05/07/17 Admission source: [facility] Identifying data: This is 32 years old AA male with no psychiatric hospitalization history, intoxicated with Opioids, Cocaine, Alcohol, Xanax and Cannabis, Nicotine Substance Abuse History: Smoking history: Current every day smoker. Have you smoked in the past 12 months: Yes. Aproximately how many cigarettes per day: 30. Cigars Per Day: 0. Hx Chewing Tobacco Use: No. Initiated information on smoking cessation: Yes. 'Breaking Loose' booklet given: 05/07/17. - Substance & Tx. History. Hx Alcohol Use: Yes. Hx Substance Use: Yes. Substance Use Type : Heroin. Hx Substance Use Treatment: Yes (last detox 04/2017). - Substances Abused. Heroin. Route: Injection. Frequency: Daily. Amount used: 3-5 bags. Age of first use: 31. Date of Last Use: 05/07/17. Cocaine. Route: Injection. Frequency: Daily. Amount used: $50. Age of first use: 31. Date of Last Use: 05/06/17 Medical History: GERD Psychiatric History: Patient reports history of depression and anxiety, reports no taking prior to admissio psychiatric medications Physical/Sexual Abuse/Trauma History: Denies Additional Comment: Observation. Detox Unit Care protocol Mental Status Exam - Mental Status Exam Alert and Oriented to: Person Cognitive Function: Fair Patient Appearance: Unkempt Mood: Sad Affect: Flat Patient Behavior: Sedated Speech Pattern: Delayed Voice Loudness: Mildly Soft/Quiet Thought Process: Circumstantial Thought Disorder: Being Controlled Hallucinations: Denies Suicidal Ideation: Denies Homicidal Ideation: Denies Insight/Judgement: Fair Sleep: Difficulty falling asleep Appetite: Weight gain Muscle strength/Tone: Mild Hypertonicity Gait/Station: Shuffling Additional Comments: Observation. Detox Unit Care protocol Psychiatric Findings - Problem List ([place] 1, 2,3) (1) Cocaine dependence Current Visit: Yes Status: Chronic Qualifiers: Substance use status: uncomplicated Qualified Code(s): F14.20 - Cocaine dependence, uncomplicated (2) Nicotine dependence Current Visit: Yes Status: Chronic Qualifiers: Nicotine product type: cigarettes Substance use status: uncomplicated Qualified Code(s): F17.210 - Nicotine dependence, cigarettes, uncomplicated (3) Opioid dependence with withdrawal Current Visit: Yes Status: Chronic (4) Drug abuse and dependence Current Visit: No Status: Acute (5) Anxiety and depression Current Visit: No Status: Suspected - Initial Treatment Plan Initial Treatment Plan: Observation. Detox Unit Care protocol
[2017-05-07] MEDS: diazePAM 5 MG TABLET PO PRN ×3 (14:20→23:42)
[2017-05-07] MEDS: GABAPENTIN 100 MG CAPSULE (FP) PO SCH ×2 (14:20→22:16)
[2017-05-07] MEDS: METHOCARBAMOL 500 MG TABLET PO PRN (14:25)
[2017-05-07] MEDS ORDERED: NICOTINE 21 MG/24 HOURS TOPICAL PATCH TD SCH (15:00)
[2017-05-07] MEDS: NICOTINE POLACRILEX 4 MG GUM BUC PRN (15:26)
[2017-05-07] MEDS: NICOTINE 21 MG/24 HOURS TOPICAL PATCH TD SCH (15:34)
[2017-05-07 18:07] LABS: URINE APPEARANCE CLEAR; URINE BILIRUBIN NEGATIVE (NEGATIVE); URINE BLOOD NEGATIVE (NEGATIVE); URINE COLOR LTYELLOW; URINE GLUCOSE (UA) NEGATIVE (NEGATIVE); URINE KETONE NEGATIVE (NEGATIVE); URINE NITRITE NEGATIVE (NEGATIVE); URINE PROTEIN NEGATIVE (NEGATIVE); URINE UROBILINOGEN NEGATIVE mg/dL (0.2-1.0)
[2017-05-07 18:10] LABS: URINE LEUK ESTERASE 3+ (NEGATIVE)
[2017-05-07] MEDS: THIAMINE HCL 100 MG TABLET (FP) PO SCH (22:16)
[2017-05-07] MEDS: RANITIDINE HCL 150 MG TABLET (FP) PO SCH (22:17)
[2017-05-07] MEDS: FLUTICASONE PROP 0.05% 16 GM NASAL SPRAY NS SCH (22:18)
[2017-05-08] MEDS: METHOCARBAMOL 500 MG TABLET PO PRN ×2 (00:01→10:35)
[2017-05-08] MEDS: GABAPENTIN 100 MG CAPSULE (FP) PO SCH ×3 (05:13→22:16)
[2017-05-08] MEDS: diazePAM 5 MG TABLET PO PRN ×5 (05:14→22:18)
--- NOTE | 2017-05-08 09:04 | PN ---
S COWS - Scale Resting Pulse: 0= [place] 80 or Below Sweatin= Chills/Flushing Restless Observation: 1= Difficult to Sit Still Pupil Size: 0= Normal to Room Light Bone or Joint Aches: 2= Severe Diffuse Aches Runny Nose/ Eye Tearin= Runny Nose/Eyes GI Upset > 30mins: 2= Nausea/Diarrhea Tremor Observation of Outstretched Hands: 2= Slight Tremor Visible Yawning Observation: 0= None Anxiety or Irritability: 2=Irritable/Anxious Goose Flesh Skin: 0=Smooth Skin COWS Score: 12 BHS Progress Note (SOAP) Subjective: joint aches GI distress tremor anxiety irritable Objective: 05/08/17 09:03 Vital Signs Temperature 97.0 F L 05/08/17 06:00 Pulse Rate 65 05/08/17 06:00 Respiratory Rate 18 05/08/17 06:00 Blood Pressure 126/60 05/08/17 06:00 O2 Sat by Pulse Oximetry (%) Laboratory Last Values Urine Color Ltyellow 05/07/17 16:00 Urine Appearance Clear 05/07/17 16:00 Urine pH 6.0 (5.0-8.0) 05/07/17 16:00 Ur Specific [place] 1.011 (1.001-1.035) 05/07/17 16:00 Urine Protein Negative (NEGATIVE) 05/07/17 16:00 Urine Glucose (UA) Negative (NEGATIVE) 05/07/17 16:00 Urine Ketones Negative (NEGATIVE) 05/07/17 16:00 Urine Blood Negative (NEGATIVE) 05/07/17 16:00 Urine Nitrite Negative (NEGATIVE) 05/07/17 16:00 Urine Bilirubin Negative (NEGATIVE) 05/07/17 16:00 Urine Urobilinogen Negative mg/dL (0.2-1.0) 05/07/17 16:00 Ur Leukocyte Esterase 3+ (NEGATIVE) H 05/07/17 16:00 lab noted Assessment: 05/08/17 09:04 withdrawal sx Plan: continue detox
[2017-05-08] MEDS ORDERED: NICOTINE 21 MG/24 HOURS TOPICAL PATCH TD SCH (10:00)
[2017-05-08] MEDS ORDERED: METHADONE HCL 10 MG TABLET (FOR DETOX USE ONLY) PO ONE (10:00)
[2017-05-08 10:30] LABS: HEMATOCRIT 36.6 % (35.4-49); HEMOGLOBIN 11.9 GM/dL (11.7-16.9); MCH 27.6 pg (25.7-33.7); MCHC 32.6 g/dl (32.0-35.9); MEAN CELL VOLUME 84.8 fl (80-96); MEAN PLT VOLUME 8.1 fl (7.5-11.1); PLATELET COUNT 313 K/MM3 (134-434); RBC 4.31 M/mm3 (4.00-5.60); RDW 15.3 % (11.9-15.9); WHITE BLOOD COUNT 9.2 K/mm3 (4.0-10.0)
[2017-05-08 10:34] LABS: CHLORIDE 103 mmol/L (98-107); POTASSIUM 4.1 mmol/L (3.5-5.1); SODIUM 138 mmol/L (136-145)
[2017-05-08] MEDS: PRENATAL VITAMINS W/ FOLIC ACID TABLET (FP) PO SCH (10:34)
[2017-05-08] MEDS: NICOTINE 21 MG/24 HOURS TOPICAL PATCH TD SCH (10:35)
[2017-05-08] MEDS: FLUTICASONE PROP 0.05% 16 GM NASAL SPRAY NS SCH ×2 (10:35→22:17)
[2017-05-08] MEDS: RANITIDINE HCL 150 MG TABLET (FP) PO SCH ×2 (10:36→22:17)
[2017-05-08 10:57] LABS: ALK PHOS 74 U/L (45-117); ANION GAP 8 (8-16); BILIRUBIN,TOTAL 0.4 mg/dL (0.2-1.0); BLOOD UREA NITROGEN 17 mg/dL (7-18); CALCIUM 9.2 mg/dL (8.5-10.1); CO2 27 mmol/L (21-32); CREATININE 0.8 mg/dL (0.7-1.3); SGOT/AST 15 U/L (15-37); SGPT/ALT 26 U/L (12-78); TOT PROT 7.4 g/dl (6.4-8.2)
[2017-05-08 11:12] LABS: GLUCOSE,RANDOM 95 mg/dL (74-106)
--- NOTE | 2017-05-08 12:53 | PN ---
Psychiatric Progress Note Vital Signs: Vital Signs Period Temp Pulse Resp BP Sys/Carlson Pulse Ox Last 24 Hr 95.5 F-97.7 F 65-83 17-18 124-159/57-98 Date of Session: 05/08/17 Chief Complaint:: " I need something for sleep." HPI: Pt. admitted to for opioid, alcohol and cocaine dependence. ROS: Unremarkable. Current Medications: Active Medications Generic Name Dose Route Start Last Admin Trade Name Freq PRN Reason Stop Dose Admin Acetaminophen 650 mg 05/07/17 13:13 Tylenol - PO Q4H PRN FEVER Al Hydroxide/Mg Hydroxide 30 ml 05/07/17 13:13 Mylanta Oral Suspension - PO Q6H PRN DYSPEPSIA Diazepam 10 mg 05/07/17 13:13 05/08/17 10:36 Valium - PO 05/10/17 13:12 10 mg Q4H PRN Administration WITHDRAWAL(CONT SUBST) Eucalyptus/Menthol/Phenol/Sorbitol 1 each 05/07/17 13:13 Cepastat Lozenge - MM Q4H PRN SORE THROAT Fluticasone Propionate 1 spray 05/07/17 22:00 05/08/17 10:35 Flonase - NS 1 spray BID MELISSA Administration Gabapentin 100 mg 05/07/17 14:00 05/08/17 05:13 Neurontin - PO 100 mg TID MELISSA Administration Guaifenesin 10 ml 05/07/17 13:13 Robitussin Dm - PO Q6H PRN COUGH Hydroxyzine Pamoate 50 mg 05/07/17 13:13 Vistaril - PO Q4H PRN AGITATION Lidocaine HCl 20 ml 05/07/17 13:22 Xylocaine 2% Viscous Oral - MM Q6HPO PRN ORAL PAIN/MOUTH SORES Loperamide HCl 4 mg 05/07/17 13:13 Imodium - PO Q6H PRN DIARRHEA Magnesium Citrate 300 ml 05/07/17 13:13 Citroma - PO Q48H PRN CONSTIPATION Magnesium Hydroxide 30 ml 05/07/17 13:13 Milk Of Magnesia - PO DAILY PRN CONSTIPATION Methadone HCl 15 mg 05/09/17 10:00 Dolophine - PO 05/09/17 10:01 ONCE ONE Methadone HCl 5 mg 05/12/17 06:00 Dolophine - PO 05/12/17 06:01 ONCE@0600 ONE Methadone HCl 15 mg 05/10/17 10:00 Dolophine - PO 05/10/17 10:01 ONCE ONE Methadone HCl 10 mg 05/11/17 10:00 Dolophine - PO 05/11/17 10:01 ONCE ONE Methocarbamol 500 mg 05/07/17 13:45 05/08/17 10:35 Robaxin - PO 500 mg BID PRN Administration PAIN Nicotine 21 mg 05/07/17 15:30 05/08/17 10:35 Nicoderm Patch - TD 21 mg DAILY MELISSA Administration Nicotine Polacrilex 4 mg 05/07/17 13:13 05/07/17 15:26 Nicorette Gum - BUC 4 mg Q2H PRN Administration NICOTINE REPLACEMENT RX Multivit/Folic Acid/Iron 1 tab 05/08/17 10:00 05/08/17 10:34 Vitamins (Sjr) - PO 1 tab DAILY MELISSA Administration Pseudoephedrine/Triprolidine 1 combo 05/07/17 13:13 Actifed - PO TID PRN NASAL CONGESTION Ranitidine HCl 150 mg 05/07/17 22:00 05/08/17 10:36 Zantac - PO 150 mg BID MELISSA Administration Thiamine HCl 100 mg 05/07/17 22:00 05/07/17 22:16 Vitamin B1 - PO 100 mg HS MELISSA Administration Medication(s) Change(s): Yes. Will add ambien 10mg qhs PRN for insomnia. Current Side Effect: No Lab tests ordered: No Lab tests reviewed: Yes Provider note:: [employer] Director approached patient concerning psychiatric reconsultation. Pt. requesting ambien for insomnia. Trazodone offered as a first choice but patient refused. Pt. did accept trazodone 100mg during previous admission on 04/19 but continued to report poor sleep. Trazodone 100mg was d/c and ambien 10mg was ordered. At this time, ambien 10mg qhs prn will be ordered for insomnia. Benefits and side effects (sleep walking) discussed. Sleep hygiene provided. Verbal consent given. Will continue to montior. Total face to face time:: 25 Mental Status Exam - Mental Status Exam Alert and Oriented to: Time, Place, Person Cognitive Function: Good Patient Appearance: Well Groomed Affect: Mood Congruent Patient Behavior: Cooperative Speech Pattern: Clear, Appropriate Voice Loudness: Normal Thought Process: Goal Oriented Thought Disorder: Not Present Hallucinations: Denies Suicidal Ideation: Denies Homicidal Ideation: Denies Insight/Judgement: Poor Sleep: Poorly Appetite: Fair Muscle strength/Tone: Normal Gait/Station: Normal Psychiatric Treatment Plan - Problem List (1) Cocaine dependence Current Visit: Yes Qualifiers: Substance use status: uncomplicated Qualified Code(s): F14.20 - Cocaine dependence, uncomplicated (2) Nicotine dependence Current Visit: Yes Qualifiers: Nicotine product type: cigarettes Substance use status: uncomplicated Qualified Code(s): F17.210 - Nicotine dependence, cigarettes, uncomplicated (3) Opioid dependence with withdrawal Current Visit: Yes (4) Insomnia Current Visit: Yes (5) Anxiety and depression Current Visit: No
[2017-05-08] MEDS: hydrOXYzine PAMOATE 50 MG CAPSULE (FP) PO PRN ×2 (12:55→18:33)
[2017-05-08] MEDS: ZOLPIDEM TARTRATE 10 MG TABLET (PARK CARE ONLY) PO PRN (22:17)
[2017-05-08] MEDS: THIAMINE HCL 100 MG TABLET (FP) PO SCH (22:17)
[2017-05-08] MEDS: LIDOCAINE VISCOUS 2% ORAL/TOP 20 ML UNIT-DOSE CUP MM PRN (22:19)
[2017-05-09] MEDS: diazePAM 5 MG TABLET PO PRN ×4 (02:21→22:27)
[2017-05-09] MEDS: GABAPENTIN 100 MG CAPSULE (FP) PO SCH ×3 (05:44→22:26)
--- NOTE | 2017-05-09 09:56 | PN ---
BHS COWS - Scale Resting Pulse: 0= [place] 80 or Below Sweatin= Chills/Flushing Restless Observation: 1= Difficult to Sit Still Pupil Size: 0= Normal to Room Light Bone or Joint Aches: 1= Mild Discomfort Runny Nose/ Eye Tearin= Nasal Congestion GI Upset > 30mins: 1= Stomach Cramp Tremor Observation of Outstretched Hands: 2= Slight Tremor Visible Yawning Observation: 2= >3x During Session Anxiety or Irritability: 1=Feels Anxious/Irritable Goose Flesh Skin: 0=Smooth Skin COWS Score: 10 BHS Progress Note (SOAP) Subjective: tremor chill anxiety irritable agitation Objective: 05/09/17 10:07 Vital Signs Temperature 96.1 F L 05/09/17 10:04 Pulse Rate 77 05/09/17 10:04 Respiratory Rate 18 05/09/17 10:04 Blood Pressure 114/78 05/09/17 10:04 O2 Sat by Pulse Oximetry (%) Laboratory Last Values WBC 9.2 K/mm3 (4.0-10.0) 05/08/17 05:50 RBC 4.31 M/mm3 (4.00-5.60) 05/08/17 05:50 Hgb 11.9 GM/dL (11.7-16.9) 05/08/17 05:50 Hct 36.6 % (35.4-49) 05/08/17 05:50 MCV 84.8 fl (80-96) 05/08/17 05:50 MCH 27.6 pg (25.7-33.7) 05/08/17 05:50 MCHC 32.6 g/dl (32.0-35.9) 05/08/17 05:50 RDW 15.3 % (11.9-15.9) 05/08/17 05:50 Plt Count 313 K/MM3 (134-434) 05/08/17 05:50 MPV 8.1 fl (7.5-11.1) 05/08/17 05:50 Sodium 138 mmol/L (136-145) 05/08/17 05:50 Potassium 4.1 mmol/L (3.5-5.1) 05/08/17 05:50 Chloride 103 mmol/L (98-107) 05/08/17 05:50 Carbon Dioxide 27 mmol/L (21-32) 05/08/17 05:50 Anion Gap 8 (8-16) 05/08/17 05:50 BUN 17 mg/dL (7-18) 05/08/17 05:50 Creatinine 0.8 mg/dL (0.7-1.3) 05/08/17 05:50 Creat Clearance w eGFR > 60 (>60) 05/08/17 05:50 Random Glucose 95 mg/dL (74-106) 05/08/17 05:50 Calcium 9.2 mg/dL (8.5-10.1) 05/08/17 05:50 Total Bilirubin 0.4 mg/dL (0.2-1.0) 05/08/17 05:50 AST 15 U/L (15-37) D 05/08/17 05:50 ALT 26 U/L (12-78) 05/08/17 05:50 Alkaline Phosphatase 74 U/L (45-117) 05/08/17 05:50 Total Protein 7.4 g/dl (6.4-8.2) 05/08/17 05:50 Albumin 4.0 g/dl (3.4-5.0) 05/08/17 05:50 Urine Color Ltyellow 05/07/17 16:00 Urine Appearance Clear 05/07/17 16:00 Urine pH 6.0 (5.0-8.0) 05/07/17 16:00 Ur Specific [place] 1.011 (1.001-1.035) 05/07/17 16:00 Urine Protein Negative (NEGATIVE) 05/07/17 16:00 Urine Glucose (UA) Negative (NEGATIVE) 05/07/17 16:00 Urine Ketones Negative (NEGATIVE) 05/07/17 16:00 Urine Blood Negative (NEGATIVE) 05/07/17 16:00 Urine Nitrite Negative (NEGATIVE) 05/07/17 16:00 Urine Bilirubin Negative (NEGATIVE) 05/07/17 16:00 Urine Urobilinogen Negative mg/dL (0.2-1.0) 05/07/17 16:00 Ur Leukocyte Esterase 3+ (NEGATIVE) H 05/07/17 16:00 RPR Titer Nonreactive (NONREACTIVE) 05/08/17 05:50 lab noted Assessment: 05/09/17 10:09 withdrawal sx Plan: continue detox
--- NOTE | 2017-05-09 09:56 | PN ---
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 Reports no psychiatric issues or complains Current Medications: Active Medications Generic Name Dose Route Start Last Admin Trade Name Freq PRN Reason Stop Dose Admin Acetaminophen 650 mg 05/07/17 13:13 Tylenol - PO Q4H PRN FEVER Al Hydroxide/Mg Hydroxide 30 ml 05/07/17 13:13 Mylanta Oral Suspension - PO Q6H PRN DYSPEPSIA Diazepam 10 mg 05/07/17 13:13 05/09/17 02:21 Valium - PO 05/10/17 13:12 10 mg Q4H PRN Administration WITHDRAWAL(CONT SUBST) Eucalyptus/Menthol/Phenol/Sorbitol 1 each 05/07/17 13:13 Cepastat Lozenge - MM Q4H PRN SORE THROAT Fluticasone Propionate 1 spray 05/07/17 22:00 05/08/17 22:17 Flonase - NS Not Given BID MELISSA Gabapentin 100 mg 05/07/17 14:00 05/09/17 05:44 Neurontin - PO 100 mg TID MELISSA Administration Guaifenesin 10 ml 05/07/17 13:13 Robitussin Dm - PO Q6H PRN COUGH Hydroxyzine Pamoate 50 mg 05/07/17 13:13 05/08/17 18:33 Vistaril - PO 50 mg Q4H PRN Administration AGITATION Lidocaine HCl 20 ml 05/07/17 13:22 05/08/17 22:19 Xylocaine 2% Viscous Oral - MM 20 ml Q6HPO PRN Administration ORAL PAIN/MOUTH SORES Loperamide HCl 4 mg 05/07/17 13:13 Imodium - PO Q6H PRN DIARRHEA Magnesium Citrate 300 ml 05/07/17 13:13 Citroma - PO Q48H PRN CONSTIPATION Magnesium Hydroxide 30 ml 05/07/17 13:13 05/08/17 13:41 Milk Of Magnesia - PO 30 ml DAILY PRN Administration CONSTIPATION Methadone HCl 15 mg 05/09/17 10:00 Dolophine - PO 05/09/17 10:01 ONCE ONE Methadone HCl 5 mg 05/12/17 06:00 Dolophine - PO 05/12/17 06:01 ONCE@0600 ONE Methadone HCl 15 mg 05/10/17 10:00 Dolophine - PO 05/10/17 10:01 ONCE ONE Methadone HCl 10 mg 05/11/17 10:00 Dolophine - PO 05/11/17 10:01 ONCE ONE Methocarbamol 500 mg 05/07/17 13:45 05/08/17 10:35 Robaxin - PO 500 mg BID PRN Administration PAIN Nicotine 21 mg 05/07/17 15:30 05/08/17 10:35 Nicoderm Patch - TD 21 mg DAILY MELISSA Administration Nicotine Polacrilex 4 mg 05/07/17 13:13 05/07/17 15:26 Nicorette Gum - BUC 4 mg Q2H PRN Administration NICOTINE REPLACEMENT RX Multivit/Folic Acid/Iron 1 tab 05/08/17 10:00 05/08/17 10:34 Vitamins (Sjr) - PO 1 tab DAILY MELISSA Administration Pseudoephedrine/Triprolidine 1 combo 05/07/17 13:13 Actifed - PO TID PRN NASAL CONGESTION Ranitidine HCl 150 mg 05/07/17 22:00 05/08/17 22:17 Zantac - PO 150 mg BID MELISSA Administration Thiamine HCl 100 mg 05/07/17 22:00 05/08/17 22:17 Vitamin B1 - PO 100 mg HS MELISSA Administration Zolpidem Tartrate 10 mg 05/08/17 22:00 05/08/17 22:17 Ambien - PO 05/11/17 21:59 10 mg HS PRN Administration INSOMNIA Medication(s) Change(s): none Mental Status Exam - Mental Status Exam Alert and Oriented to: Person Cognitive Function: Fair Patient Appearance: Unkempt Mood: Anxious Affect: Mood Congruent Patient Behavior: Cooperative Speech Pattern: Appropriate Voice Loudness: Normal Thought Process: Circumstantial, Goal Oriented Thought Disorder: Being Controlled Hallucinations: Denies Suicidal Ideation: Denies Homicidal Ideation: Denies Insight/Judgement: Fair Sleep: Difficulty falling asleep Appetite: Weight loss Muscle strength/Tone: Normal Gait/Station: Normal Additional Comments: Observation. Detox Unit Care Protocol Psychiatric Treatment Plan - Problem List (1) Cocaine dependence Current Visit: Yes Qualifiers: Substance use status: uncomplicated Qualified Code(s): F14.20 - Cocaine dependence, uncomplicated (2) Nicotine dependence Current Visit: Yes Qualifiers: Nicotine product type: cigarettes Substance use status: uncomplicated Qualified Code(s): F17.210 - Nicotine dependence, cigarettes, uncomplicated (3) Opioid dependence with withdrawal Current Visit: Yes (4) Drug abuse and dependence Current Visit: No (5) Anxiety and depression Current Visit: No Initial treatment plan: Observation. Detox Unit Care Protocol. Continue treatment plan
[2017-05-09] MEDS ORDERED: METHADONE HCL 5 MG TABLET (FOR DETOX USE ONLY) PO ONE (10:00)
[2017-05-09] MEDS: PRENATAL VITAMINS W/ FOLIC ACID TABLET (FP) PO SCH (10:18)
[2017-05-09] MEDS: FLUTICASONE PROP 0.05% 16 GM NASAL SPRAY NS SCH ×2 (10:19→22:54)
[2017-05-09] MEDS: RANITIDINE HCL 150 MG TABLET (FP) PO SCH ×2 (10:19→22:26)
[2017-05-09] MEDS: NICOTINE 21 MG/24 HOURS TOPICAL PATCH TD SCH (10:19)
[2017-05-09] MEDS: METHOCARBAMOL 500 MG TABLET PO PRN (10:19)
--- NOTE | 2017-05-09 10:56 | EKG ---
Test Reason : Blood Pressure : / mmHG Vent. Rate : 072 BPM Atrial Rate : 072 BPM P-R Int : 128 ms QRS Dur : 100 ms QT Int : 388 ms P-R-T Axes : 044 061 045 degrees QTc Int : 424 ms NORMAL SINUS RHYTHM NORMAL ECG WHEN COMPARED WITH ECG OF 09-APR-2017 21:22, NO SIGNIFICANT CHANGE WAS FOUND Confirmed by SANDEE DAI MD ([id number]) on 05/09/2017 10:55:52 AM Referred By: Confirmed By:SANDEE DAI MD
[2017-05-09] MEDS: hydrOXYzine PAMOATE 50 MG CAPSULE (FP) PO PRN (13:16)
[2017-05-09] MEDS: THIAMINE HCL 100 MG TABLET (FP) PO SCH (22:25)
[2017-05-09] MEDS: ZOLPIDEM TARTRATE 10 MG TABLET (PARK CARE ONLY) PO PRN (22:27)
[2017-05-10] MEDS: diazePAM 5 MG TABLET PO PRN ×3 (02:15→10:18)
[2017-05-10] MEDS: hydrOXYzine PAMOATE 50 MG CAPSULE (FP) PO PRN ×4 (04:18→18:46)
[2017-05-10] MEDS: GABAPENTIN 100 MG CAPSULE (FP) PO SCH ×3 (07:20→21:49)
--- NOTE | 2017-05-10 09:27 | PN ---
[facility] Progress Note (SOAP) Subjective: mild body ache wants to return to the community 05/11/17 agrees to follow up with aftercare Objective: 05/10/17 09:25 Vital Signs Temperature 98.2 F 05/10/17 06:19 Pulse Rate 84 05/10/17 06:19 Respiratory Rate 18 05/10/17 06:19 Blood Pressure 134/65 05/10/17 06:19 O2 Sat by Pulse Oximetry (%) Laboratory Last Values WBC 9.2 K/mm3 (4.0-10.0) 05/08/17 05:50 RBC 4.31 M/mm3 (4.00-5.60) 05/08/17 05:50 Hgb 11.9 GM/dL (11.7-16.9) 05/08/17 05:50 Hct 36.6 % (35.4-49) 05/08/17 05:50 MCV 84.8 fl (80-96) 05/08/17 05:50 MCH 27.6 pg (25.7-33.7) 05/08/17 05:50 MCHC 32.6 g/dl (32.0-35.9) 05/08/17 05:50 RDW 15.3 % (11.9-15.9) 05/08/17 05:50 Plt Count 313 K/MM3 (134-434) 05/08/17 05:50 MPV 8.1 fl (7.5-11.1) 05/08/17 05:50 Sodium 138 mmol/L (136-145) 05/08/17 05:50 Potassium 4.1 mmol/L (3.5-5.1) 05/08/17 05:50 Chloride 103 mmol/L (98-107) 05/08/17 05:50 Carbon Dioxide 27 mmol/L (21-32) 05/08/17 05:50 Anion Gap 8 (8-16) 05/08/17 05:50 BUN 17 mg/dL (7-18) 05/08/17 05:50 Creatinine 0.8 mg/dL (0.7-1.3) 05/08/17 05:50 Creat Clearance w eGFR > 60 (>60) 05/08/17 05:50 Random Glucose 95 mg/dL (74-106) 05/08/17 05:50 Calcium 9.2 mg/dL (8.5-10.1) 05/08/17 05:50 Total Bilirubin 0.4 mg/dL (0.2-1.0) 05/08/17 05:50 AST 15 U/L (15-37) D 05/08/17 05:50 ALT 26 U/L (12-78) 05/08/17 05:50 Alkaline Phosphatase 74 U/L (45-117) 05/08/17 05:50 Total Protein 7.4 g/dl (6.4-8.2) 05/08/17 05:50 Albumin 4.0 g/dl (3.4-5.0) 05/08/17 05:50 Urine Color Ltyellow 05/07/17 16:00 Urine Appearance Clear 05/07/17 16:00 Urine pH 6.0 (5.0-8.0) 05/07/17 16:00 Ur Specific [place] 1.011 (1.001-1.035) 05/07/17 16:00 Urine Protein Negative (NEGATIVE) 05/07/17 16:00 Urine Glucose (UA) Negative (NEGATIVE) 05/07/17 16:00 Urine Ketones Negative (NEGATIVE) 05/07/17 16:00 Urine Blood Negative (NEGATIVE) 05/07/17 16:00 Urine Nitrite Negative (NEGATIVE) 05/07/17 16:00 Urine Bilirubin Negative (NEGATIVE) 05/07/17 16:00 Urine Urobilinogen Negative mg/dL (0.2-1.0) 05/07/17 16:00 Ur Leukocyte Esterase 3+ (NEGATIVE) H 05/07/17 16:00 RPR Titer Nonreactive (NONREACTIVE) 05/08/17 05:50 lab noted Assessment: 05/10/17 09:25 mild withdrawal sx possible discharge 05/11/17 Plan: medically supervised detox overnight re evaluate 05/11/17 am for possible discharge
[2017-05-10] MEDS ORDERED: METHADONE HCL 10 MG TABLET (FOR DETOX USE ONLY) PO ONE (10:00)
[2017-05-10] MEDS ORDERED: METHADONE HCL 5 MG TABLET (FOR DETOX USE ONLY) PO ONE (10:00)
[2017-05-10] MEDS: FLUTICASONE PROP 0.05% 16 GM NASAL SPRAY NS SCH ×2 (10:14→22:37)
[2017-05-10] MEDS: METHOCARBAMOL 500 MG TABLET PO PRN ×2 (10:14→21:49)
[2017-05-10] MEDS: PRENATAL VITAMINS W/ FOLIC ACID TABLET (FP) PO SCH (10:14)
[2017-05-10] MEDS: NICOTINE 21 MG/24 HOURS TOPICAL PATCH TD SCH (10:15)
[2017-05-10] MEDS: RANITIDINE HCL 150 MG TABLET (FP) PO SCH ×2 (10:15→21:49)
[2017-05-10] MEDS: THIAMINE HCL 100 MG TABLET (FP) PO SCH (21:48)
[2017-05-10] MEDS: LIDOCAINE VISCOUS 2% ORAL/TOP 20 ML UNIT-DOSE CUP MM PRN (21:48)
[2017-05-10] MEDS: ZOLPIDEM TARTRATE 10 MG TABLET (PARK CARE ONLY) PO PRN (21:49)
[2017-05-10] MEDS: ACETAMINOPHEN 325 MG TABLET (FP) PO PRN (21:56)
[2017-05-11] MEDS: hydrOXYzine PAMOATE 50 MG CAPSULE (FP) PO PRN (01:17)
[2017-05-11] MEDS: NICOTINE POLACRILEX 4 MG GUM BUC PRN (03:03)
[2017-05-11] MEDS: GABAPENTIN 100 MG CAPSULE (FP) PO SCH (05:54)
[2017-05-11] MEDS ORDERED: METHADONE HCL 5 MG TABLET (FOR DETOX USE ONLY) PO ONE (06:00)
[2017-05-11 06:10] VITALS: BP 103/59; PULSE 73; TEMP 97.3
[2017-05-11] MEDS: ACETAMINOPHEN 325 MG TABLET (FP) PO PRN (07:36)
--- NOTE | 2017-05-11 08:33 | DS ---
[facility] Detox Discharge Summary Admission Date: 05/07/17 Discharge Date: 05/11/17 - History Present History: Cocaine Dependence, Opioid Dependence - Physical Exam Results Vital Signs: Vital Signs Temperature 97.3 F L 05/11/17 06:10 Pulse Rate 73 05/11/17 06:10 Respiratory Rate 18 05/11/17 06:10 Blood Pressure 103/59 05/11/17 06:10 O2 Sat by Pulse Oximetry (%) - Treatment Hospital Course: Detox Protocol Followed, Detoxed Safely, Responded well, Discharged Condition Good, Rehab Referral Accepted - Medication Discharge Medications: Ambulatory Orders Fluticasone Prop 0.05% Nasal [Flonase -] 1 sprays(dnu) IH BID #1 spray 04/13/17 Gabapentin [Neurontin -] 100 mg PO TID #90 capsule 04/13/17 Methocarbamol [Robaxin -] 500 mg PO BID PRN #60 tablet 04/13/17 Naproxen [Naprosyn -] 500 mg PO BID PRN #60 tablet 04/13/17 - Diagnosis (1) Cocaine dependence Current Visit: Yes Status: Chronic Qualifiers: Substance use status: uncomplicated Qualified Code(s): F14.20 - Cocaine dependence, uncomplicated (2) Nicotine dependence Current Visit: Yes Status: Chronic Qualifiers: Nicotine product type: cigarettes Substance use status: uncomplicated Qualified Code(s): F17.210 - Nicotine dependence, cigarettes, uncomplicated (3) Opioid dependence with withdrawal Current Visit: Yes Status: Acute (4) GERD (gastroesophageal reflux disease) Current Visit: Yes Status: Chronic Qualifiers: Esophagitis presence: without esophagitis Qualified Code(s): K21.9 - Gastro -esophageal reflux disease without esophagitis
[2017-05-11] MEDS ORDERED: METHADONE HCL 10 MG TABLET (FOR DETOX USE ONLY) PO ONE (10:00)
[2017-05-12] MEDS ORDERED: METHADONE HCL 5 MG TABLET (FOR DETOX USE ONLY) PO ONE (06:00)
== END 2017-05-11 09:07 | disposition home or self-care (01) | DRG 773 ==
LOC: YASAS 10:15 → Y6N 13:27
PROVIDERS: ADMIT Internal Medicine; ATTEND Internal Medicine
PROC: HZ2ZZZZ Detoxification Services for Substance Abuse Treatment (ICD-10-PCS; principal; 2017-05-07)
DX: F11.23 Opioid dependence with withdrawal (principal); F14.20 Cocaine dependence, uncomplicated; F17.210 Nicotine dependence, cigarettes, uncomplicated; F41.8 Other specified anxiety disorders; K21.9 Gastro-esophageal reflux disease without esophagitis; G47.00 Insomnia, unspecified
CPT/HCPCS: 36415; 80053; 81003; 81015; 85027; 86593; 93005; 93010

== ENCOUNTER 2017-10-23 12:48 | Inpatient (IN) | payer OTHER ==
[2017-10-23 13:53] VITALS: BMI 20.3
--- NOTE | 2017-10-23 14:48 | HP ---
COWS - Scale Resting Pulse: 2= SD 101-120 Sweatin=Flushed/Facial Moisture Restless Observation: 3= Extraneous Movement Pupil Size: 2= Moderately Dilated Bone or Joint Aches: 2= Severe Diffuse Aches Runny Nose/ Eye Tearin= Runny Nose/Eyes GI Upset > 30mins: 3= Vomiting/Diarrhea Tremor Observation: 2= Slight Tremor Visible Yawning Observation: 2= >3x During Session Anxiety or Irritability: 2=Irritable/Anxious Goose Flesh Skin: 0=Smooth Skin COWS Score: 22 CIWA Score - CIWA Score Nausea/Vomitin Muscle Tremors: 3 Anxiety: 2 Agitation: 2 Paroxysmal Sweats: 1-Minimal Palms Moist Orientation: 0-Oriented Tacttile Disturbances: 1-Very Mild Itch/Numbness Auditory Disturbances: 1-Very Mild Visual Disturbances: 0-None Headache: 2-Mild CIWA-Ar Total Score: 15 Admission ROS BHS - HPI Chief Complaint: i need help to stop using heroin and cocaine,xanax Allergies/Adverse Reactions: Allergies Allergy/AdvReac Type Severity Reaction Status Date / Time No Known Allergies Allergy Verified 10/23/17 14:36 History of Present Illness: this 32 years old male with heroin,cocaine dependence,xanax ,seeking detox, withdrawal symptom,last detox [facility] 05/07/17 to 05/11/17 multiple admissions in detox but keep relapsing s/p neck surgery at [facility] in 02/16 anxiety,insomnia no significant period of sobriety weight loss taking doxycycline 100 mgs po bid since 10/22/17 for bronchitis in [place] - Ebola screening Have you traveled outside of the country in the last 21 days: No Have you had contact with anyone from an Ebola affected area: No Have you been sick,other than usual withdrawal symptoms: No Do you have a fever: No - Review of Systems Constitutional: Chills, Loss of Appetite, Malaise, Night Sweats, Changes in sleep, Weakness, Unintentional Wgt. Loss EENT: reports: Tearing, Nose Congestion Respiratory: reports: No Symptoms reported Cardiac: reports: Palpitations GI: reports: Diarrhea, Nausea, Vomiting, Abdominal cramping Musculoskeletal: reports: Back Pain, Muscle Pain Integumentary: reports: Dryness Neuro: reports: Headache, Tremors Endocrine: reports: No Symptoms Reported Hematology: reports: No Symptoms Reported Psychiatric: reports: No Sypmtoms Reported, Judgement Intact, Mood/Affect Appropiate Patient History - Patient Medical History Hx Anemia: No Hx Asthma: No Hx Chronic Obstructive Pulmonary Disease (COPD): No Hx Cancer: No Hx Cardiac Disorders: No Hx Congestive Heart Failure: No Hx Hypertension: No Hx Hypercholesterolemia: No Hx Pacemaker: No HX Cerebrovascular Accident: No Hx Seizures: No Hx Dementia: No Hx Diabetes: No Hx Gastrointestinal Disorders: Yes (acid reflux) Hx Liver Disease: No Hx Genitourinary Disorders: No Hx Sexually Transmitted Disorders: No Hx Renal Disease (ESRD): No Hx Thyroid Disease: No Hx Human Immunodeficiency Virus (HIV): No (negative last 02/16 ) Hx Hepatitis C: No (negative) Hx Depression: No Hx Suicide Attempt: No Hx Bipolar Disorder: No Hx Schizophrenia: No Other Medical History: anxiety,insomnia,no suicidal,no homicidal - Patient Surgical History Past Surgical History: Yes Hx Neurologic Surgery: Yes (neck sx 02/16 spinal fusion) Hx Cataract Extraction: No Hx Cardiac Surgery: No Hx Lung Surgery: No Hx Breast Surgery: No Hx Breast Biopsy: No Hx Abdominal Surgery: No Hx Appendectomy: No Hx Cholecystectomy: No Hx Genitourinary Surgery: No Hx Orthopedic Surgery: Yes (R knee meniscus repair.2016) Anesthesia Reaction: No - PPD History Previous Implant?: Yes Implanted On Prior [facility] Admission?: Yes Date: 04/11/17 Results: 0 mm PPD to be Administered?: No - Smoking Cessation Smoking history: Current every day smoker Have you smoked in the past 12 months: Yes Aproximately how many cigarettes per day: 10 Cigars Per Day: 0 Hx Chewing Tobacco Use: No Initiated information on smoking cessation: Yes 'Breaking Loose' booklet given: 10/23/17 - Substance & Tx. History Hx Alcohol Use: No Hx Substance Use: Yes Substance Use Type: Cocaine, Heroin, Tranquilizers Hx Substance Use Treatment: Yes ([facility] 05/07/17 to 05/11/17) - Substances Abused Heroin Route: Injection Frequency: Daily Amount used: 3 bags Age of first use: 31 Date of Last Use: 10/23/17 Cocaine Route: Inhalation Frequency: Daily Amount used: 1/2 gram-1 gram Age of first use: 17 Date of Last Use: 10/23/17 Alprazolam (Xanax) Route: Oral Frequency: 1-2 times per week Amount used: 1mg Age of first use: 23 Date of Last Use: 10/21/17 Family Disease History - Family Disease History Family Disease History: Other: Father (no contact) Admission Physical Exam [facility] - Vital Signs Vital Signs: Vital Signs - 24 hr 10/23/17 13:49 Temperature 98.2 F Pulse Rate 102 H Respiratory 18 Rate Blood Pressure 162/100 - Physical General Appearance: Yes: Moderate Distress, Tremorous, Irritable, Sweating, Anxious HEENTM: Yes: Normal ENT Inspection, NOE, Pharynx Normal, Other (s/p neck surgery) Respiratory: Yes: Lungs Clear, Normal Breath Sounds, No Respiratory Distress Neck: Yes: Within Normal Limits, Supple, Trachea in good position, Other (scar right anterior of neck) Breast: Yes: Within Normal Limits Cardiology: Yes: Within Normal Limits, Regular Rhythm, Regular Rate, S1, S2 Abdominal: Yes: Within Normal Limits, Normal Bowel Sounds, Non Tender, Flat, Soft Genitourinary: Yes: Within Normal Limits Back: Yes: Muscle Spasm Musculoskeletal: Yes: Back pain, Joint Stiffness, Muscle Pain Extremities: Yes: Normal Range of Motion, Tremors Neurological: Yes: license registration examiner [id number] NML intact, Fully Oriented, Alert, Motor Strength 5/5 Integumentary: Yes: Dry Lymphatic: Yes: Within Normal Limits - Diagnostic (1) Opioid dependence with withdrawal Current Visit: Yes Status: Acute (2) Insomnia Current Visit: Yes Status: Acute (3) Weight loss Current Visit: Yes Status: Acute (4) Cocaine dependence Current Visit: Yes Status: Acute Qualifiers: Substance use status: uncomplicated Qualified Code(s): F14.20 - Cocaine dependence, uncomplicated (5) GERD (gastroesophageal reflux disease) Current Visit: Yes Status: Chronic Qualifiers: Esophagitis presence: esophagitis presence not specified Qualified Code(s) : K21.9 - Gastro-esophageal reflux disease without esophagitis (6) Nicotine dependence Current Visit: Yes Status: Acute Qualifiers: Nicotine product type: cigarettes Substance use status: in withdrawal Qualified Code(s): F17.213 - Nicotine dependence, cigarettes, with withdrawal (7) Anxiety and depression Current Visit: No Status: Suspected (8) Acute bronchitis Current Visit: Yes Status: Acute Qualifiers: Bronchitis organism: unspecified organism Qualified Code(s): J20.9 - Acute bronchitis, unspecified Cleared for Admission [facility] - Detox or Rehab [facility] Level of Care: Medically Managed Detox Regimen/Protocol: Methadone [facility] Breath Alcohol Content Breath Alcohol Content: 0 Urine Drug Screen - Results Drug Screen Negative: No Urine Drug Screen Results: NATE-Cocaine, OPI-Opiates, BZO-Benzodiazepines, TCA- Tricyclic Antidepress, OXY-Oxycodone
[2017-10-23] MEDS ORDERED: NICOTINE POLACRILEX 2 MG GUM BC PRN (15:00)
[2017-10-23] MEDS ORDERED: METHADONE HCL 10 MG TABLET (FOR DETOX USE ONLY) PO ONE ×2 (15:00→23:00)
[2017-10-23] MEDS ORDERED: P-EPHED 60MG/TRIPROLIDI 2.5MG TABLET PO PRN (15:00)
[2017-10-23] MEDS ORDERED: MENTHOL/PHENOL 1 EACH UD MM PRN (15:00)
[2017-10-23] MEDS ORDERED: LOPERAMIDE HCL 2 MG CAPSULE PO PRN (15:00)
[2017-10-23] MEDS ORDERED: guaiFENesin/D-METHORPHAN HB 10 ML UNIT-DOSE CUPS PO PRN (15:00)
[2017-10-23] MEDS ORDERED: MAGNESIUM CITRATE 300 ML BOTTLE PO PRN (15:00)
[2017-10-23] MEDS ORDERED: MAG HYDROX/AL HYDROX/SIMETH 30 ML UNIT-DOSE CUP PO PRN (15:00)
[2017-10-23] MEDS ORDERED: MAGNESIUM HYDROX 2400MG/30ML ORAL SUSPENSION 30 ML CUP PO PRN (15:00)
[2017-10-23] MEDS: diazePAM 5 MG TABLET PO PRN ×2 (18:00→22:19)
[2017-10-23] MEDS: IBUPROFEN 400 MG TABLET (FP) PO PRN (18:39)
[2017-10-23] MEDS: NICOTINE 21 MG/24 HOURS TOPICAL PATCH TD SCH (18:54)
[2017-10-23 21:16] LABS: URINE APPEARANCE CLEAR; URINE BILIRUBIN NEGATIVE (<2.0 mg/dL); URINE COLOR LTYELLOW; URINE GLUCOSE (UA) NEGATIVE (NEGATIVE); URINE KETONE NEGATIVE (NEGATIVE); URINE LEUK ESTERASE NEGATIVE (NEGATIVE); URINE NITRITE NEGATIVE (NEGATIVE); URINE PROTEIN NEGATIVE (NEGATIVE); URINE UROBILINOGEN NEGATIVE mg/dL (0.2-1.0)
[2017-10-23 21:27] LABS: EPI CELLS RARE /HPF (FEW); GRANULAR CASTS 1 /lpf
[2017-10-23] MEDS ORDERED: MELATONIN 5 MG TABLETS PO PRN (22:00)
[2017-10-23] MEDS: THIAMINE HCL 100 MG TABLET (FP) PO SCH (22:19)
[2017-10-23] MEDS: hydrOXYzine PAMOATE 25 MG CAPSULE (FP) PO PRN (22:20)
[2017-10-24] MEDS: IBUPROFEN 400 MG TABLET (FP) PO PRN (02:56)
[2017-10-24] MEDS: diazePAM 5 MG TABLET PO PRN ×5 (02:58→21:34)
--- NOTE | 2017-10-24 09:43 | CONSULT ---
[facility] Psychiatric Consult - Data Date of interview: 10/24/17 Admission source: [facility] Identifying data: Patient is a 32 year old single male, father of two, unemployed, domiciled, and supported by workers compensation. This is one of multiple admissions for patient. Pt. admitted to for opioid and cocaine dependence. Substance Abuse History: Smoking Cessation. Smoking history: Current every day smoker. Have you smoked in the past 12 months: Yes. Aproximately how many cigarettes per day: 10. Cigars Per Day: 0. Hx Chewing Tobacco Use: No. Initiated information on smoking cessation: Yes. 'Breaking Loose' booklet given : 10/23/17. - Substance & Tx. History. Hx Alcohol Use: No. Hx Substance Use: Yes. Substance Use Type: Cocaine, Heroin, Tranquilizers. Hx Substance Use Treatment: Yes ([facility] 05/07/17 to 05/11/17) Medical History: Acid reflux, R knee meniscus repair-2015 Psychiatric History: Patient denies h/o psychiatric hospitalization, outpatient care, and suicide attempt. Physical/Sexual Abuse/Trauma History: Denies. Mental Status Exam - Mental Status Exam Alert and Oriented to: Time, Place, Person Cognitive Function: Good Patient Appearance: Well Groomed Mood: Euthymic Affect: Mood Congruent Patient Behavior: Cooperative Speech Pattern: Appropriate Voice Loudness: Normal Thought Process: Intact, Goal Oriented Thought Disorder: Not Present Hallucinations: Denies Suicidal Ideation: Denies Homicidal Ideation: Denies Insight/Judgement: Poor Sleep: Fair Appetite: Fair Muscle strength/Tone: Normal Gait/Station: Normal Psychiatric Findings - Problem List ([place] 1, 2,3) (1) Opioid dependence with withdrawal Current Visit: Yes Status: Acute (2) Cocaine dependence Current Visit: Yes Status: Chronic Qualifiers: Substance use status: uncomplicated Qualified Code(s): F14.20 - Cocaine dependence, uncomplicated (3) Substance induced mood disorder Current Visit: Yes Status: Acute (4) Nicotine dependence Current Visit: Yes Status: Chronic Qualifiers: Nicotine product type: cigarettes Substance use status: uncomplicated Qualified Code(s): F17.210 - Nicotine dependence, cigarettes, uncomplicated - Initial Treatment Plan Initial Treatment Plan: Psychoeducation provided. Detoxification provided. Observation.
[2017-10-24] MEDS ORDERED: METHADONE HCL 10 MG TABLET (FOR DETOX USE ONLY) PO ONE (10:00)
[2017-10-24 10:08] LABS: CHLORIDE 102 mmol/L (98-107); POTASSIUM 3.7 mmol/L (3.5-5.1); SODIUM 137 mmol/L (136-145)
--- NOTE | 2017-10-24 10:08 | EKG ---
Test Reason : Blood Pressure : / mmHG Vent. Rate : 097 BPM Atrial Rate : 097 BPM P-R Int : 130 ms QRS Dur : 088 ms QT Int : 372 ms P-R-T Axes : 050 041 038 degrees QTc Int : 472 ms NORMAL SINUS RHYTHM MODERATE VOLTAGE CRITERIA FOR LVH, MAY BE NORMAL VARIANT BORDERLINE ECG WHEN COMPARED WITH ECG OF 07-MAY-2017 14:32, NO SIGNIFICANT CHANGE WAS FOUND Confirmed by MALAIKA STODDARD, SANDEE ([id number]) on 10/24/2017 10:08:23 AM Referred By: Confirmed By:SANDEE DAI MD
[2017-10-24 10:14] LABS: HEMATOCRIT 26.5 % (35.4-49); HEMOGLOBIN 8.9 GM/dL (11.7-16.9); MCHC 33.4 g/dl (32.0-35.9); MEAN CELL VOLUME 80.6 fl (80-96); MEAN PLT VOLUME 7.4 fl (7.5-11.1); PLATELET COUNT 261 K/MM3 (134-434); RBC 3.28 M/mm3 (4.00-5.60); RDW 18.4 % (11.9-15.9); WHITE BLOOD COUNT 5.5 K/mm3 (4.0-10.0)
[2017-10-24] MEDS: PRENATAL VITAMINS W/ FOLIC ACID TABLET (FP) PO SCH (10:23)
[2017-10-24] MEDS: NICOTINE 21 MG/24 HOURS TOPICAL PATCH TD SCH (10:23)
[2017-10-24] MEDS: PATIENT'S OWN MEDICATION (NON-FORMULARY) (Doxycycline Hyclate [Doxycycline Hyclate] 100 MG PO SCH ×3 (10:23→17:09)
[2017-10-24] MEDS: NAPROXEN 500 MG TABLET (FP) PO SCH ×2 (10:24→21:34)
[2017-10-24] MEDS: CYCLOBENZAPRINE HCL 10 MG TABLET (FP) PO PRN ×2 (10:26→21:34)
[2017-10-24 10:32] LABS: ALBUMIN 2.8 g/dl (3.4-5.0); ALK PHOS 98 U/L (45-117); ANION GAP 10 (8-16); BILIRUBIN,TOTAL 0.2 mg/dL (0.2-1.0); BLOOD UREA NITROGEN 14 mg/dL (7-18); CALCIUM 8.5 mg/dL (8.5-10.1); CO2 25 mmol/L (21-32); CREATININE 1.1 mg/dL (0.7-1.3); GLUCOSE,RANDOM 135 mg/dL (74-106); SGOT/AST 23 U/L (15-37); SGPT/ALT 30 U/L (12-78); TOT PROT 7.6 g/dl (6.4-8.2)
--- NOTE | 2017-10-24 11:10 | PN ---
[facility] CIWA - CIWA Score Nausea/Vomitin-No Nausea/No Vomiting Muscle Tremors: 3 Anxiety: 3 Agitation: 3 Paroxysmal Sweats: 7-Drenching Sweats Orientation: 0-Oriented Tacttile Disturbances: 0-None Auditory Disturbances: 0-None Visual Disturbances: 0-None Headache: 0-None Present CIWA-Ar Total Score: 16 BHS COWS - Scale Resting Pulse: 0= ND 80 or Below Sweatin= Chills/Flushing Restless Observation: 3= Extraneous Movement Pupil Size: 0= Normal to Room Light Bone or Joint Aches: 1= Mild Discomfort Runny Nose/ Eye Tearin= Nasal Congestion GI Upset > 30mins: 0= None Tremor Observation of Outstretched Hands: 2= Slight Tremor Visible Yawning Observation: 1= 1-2x During Session Anxiety or Irritability: 2=Irritable/Anxious Goose Flesh Skin: 0=Smooth Skin COWS Score: 11 [facility] Progress Note (SOAP) Subjective: ANXIETY,DRENCHING SWEATS AT NIGHT,CHILLS,INTERMITTENT SLEEP. HX CHRONIC ACHE AND REQUESTING FLEXERIL AND ON NAPROSYN. Objective: 10/24/17 11:09 Vital Signs 10/24/17 10/24/17 10/24/17 06:06 06:30 09:13 Temperature 98.7 F 97.6 F Pulse Rate 67 75 Respiratory 18 18 18 Rate Blood Pressure 101/64 97/62 Laboratory Tests 10/23/17 10/24/17 10/24/17 20:30 06:30 06:30 WBC 5.5 RBC 3.28 L Hgb 8.9 L Hct 26.5 L D MCV 80.6 MCH 27.0 MCHC 33.4 RDW 18.4 H Plt Count 261 MPV 7.4 L Sodium 137 Potassium 3.7 Chloride 102 Carbon Dioxide 25 Anion Gap 10 BUN 14 Creatinine 1.1 Creat Clearance w eGFR > 60 Random Glucose 135 H D Calcium 8.5 Total Bilirubin 0.2 AST 23 D ALT 30 Alkaline Phosphatase 98 Total Protein 7.6 Albumin 2.8 L Urine Color Ltyellow Urine Appearance Clear Urine pH 7.0 Ur Specific [place] 1.010 Urine Protein Negative Urine Glucose (UA) Negative Urine Ketones Negative Urine Blood 1+ H Urine Nitrite Negative Urine Bilirubin Negative Urine Urobilinogen Negative Ur Leukocyte Esterase Negative Urine WBC (Auto) 3 Urine RBC (Auto) 4 Ur Epithelial Cells Rare Granular Casts 1 RPR Titer 10/24/17 06:30 WBC RBC Hgb Hct MCV MCH MCHC RDW Plt Count MPV Sodium Potassium Chloride Carbon Dioxide Anion Gap BUN Creatinine Creat Clearance w eGFR Random Glucose Calcium Total Bilirubin AST ALT Alkaline Phosphatase Total Protein Albumin Urine Color Urine Appearance Urine pH Ur Specific [place] Urine Protein Urine Glucose (UA) Urine Ketones Urine Blood Urine Nitrite Urine Bilirubin Urine Urobilinogen Ur Leukocyte Esterase Urine WBC (Auto) Urine RBC (Auto) Ur Epithelial Cells Granular Casts RPR Titer Nonreactive Assessment: 10/24/17 11:09 WITHDRAWAL SX Plan: CONTINUE DETOX D/C MOTRIN REORDER NAPROSYN DIRECTED FLEXERIL DIRECTED.
--- NOTE | 2017-10-24 17:22 | PN ---
[facility] Progress Note Note: Psychiatry Attending's note : Approached by patient. Complaint : insomnia. Request : trazodone at bedtime. Chart reviewed. waiter/waitress informal Uvaldo's note : appreciated. Mr Sanchez is already known to this report writer. Discussed side effects/benefits of trazodone. Patient made aware of risk of priapism. Plan : Trazodone 100 mg po hs. Ordered.Consent (verbal) given.
[2017-10-24] MEDS: hydrOXYzine PAMOATE 25 MG CAPSULE (FP) PO PRN (21:33)
[2017-10-24] MEDS: traZODone HCL 50 MG TABLET (FP) PO SCH (21:34)
[2017-10-24] MEDS: THIAMINE HCL 100 MG TABLET (FP) PO SCH (21:36)
[2017-10-25] MEDS: diazePAM 5 MG TABLET PO PRN ×4 (04:14→22:24)
[2017-10-25] MEDS ORDERED: METHADONE HCL 5 MG TABLET (FOR DETOX USE ONLY) PO ONE (10:00)
[2017-10-25] MEDS: PATIENT'S OWN MEDICATION (NON-FORMULARY) (Doxycycline Hyclate [Doxycycline Hyclate] 100 MG PO SCH ×2 (10:27→17:24)
[2017-10-25] MEDS: PRENATAL VITAMINS W/ FOLIC ACID TABLET (FP) PO SCH (10:27)
[2017-10-25] MEDS: NAPROXEN 500 MG TABLET (FP) PO SCH (10:27)
[2017-10-25] MEDS: NICOTINE 21 MG/24 HOURS TOPICAL PATCH TD SCH (10:27)
--- NOTE | 2017-10-25 10:52 | PN ---
S CIWA - CIWA Score Nausea/Vomitin-No Nausea/No Vomiting Muscle Tremors: 4-Moderate,w/Arms Extend Anxiety: 4-Mod. Anxious/Guarded Agitation: 4-Moderately Restless Paroxysmal Sweats: 1-Minimal Palms Moist Orientation: 0-Oriented Tacttile Disturbances: 0-None Auditory Disturbances: 0-None Visual Disturbances: 0-None Headache: 0-None Present CIWA-Ar Total Score: 13 S COWS - Scale Resting Pulse: 0= [place] 80 or Below Sweatin= Chills/Flushing Restless Observation: 3= Extraneous Movement Pupil Size: 2= Moderately Dilated Bone or Joint Aches: 1= Mild Discomfort Runny Nose/ Eye Tearin= None GI Upset > 30mins: 0= None Tremor Observation of Outstretched Hands: 1= Tremor [place], Not Seen Yawning Observation: 2= >3x During Session Anxiety or Irritability: 2=Irritable/Anxious Goose Flesh Skin: 0=Smooth Skin COWS Score: 12 S Progress Note (SOAP) Subjective: ANXIETY,SWEATS,COLD. REPORTS DETOX TAPER PROCEEDING WELL. Objective: 10/25/17 10:49 Vital Signs 10/25/17 10/25/17 10/25/17 05:54 06:30 09:19 Temperature 97.1 F L 97.5 F L Pulse Rate 70 70 Respiratory 20 18 18 Rate Blood Pressure 104/63 127/74 Laboratory Tests 10/23/17 10/24/17 10/24/17 20:30 06:30 06:30 WBC 5.5 RBC 3.28 L Hgb 8.9 L Hct 26.5 L D MCV 80.6 MCH 27.0 MCHC 33.4 RDW 18.4 H Plt Count 261 MPV 7.4 L Sodium 137 Potassium 3.7 Chloride 102 Carbon Dioxide 25 Anion Gap 10 BUN 14 Creatinine 1.1 Creat Clearance w eGFR > 60 Random Glucose 135 H D Calcium 8.5 Total Bilirubin 0.2 AST 23 D ALT 30 Alkaline Phosphatase 98 Total Protein 7.6 Albumin 2.8 L Urine Color Ltyellow Urine Appearance Clear Urine pH 7.0 Ur Specific [place] 1.010 Urine Protein Negative Urine Glucose (UA) Negative Urine Ketones Negative Urine Blood 1+ H Urine Nitrite Negative Urine Bilirubin Negative Urine Urobilinogen Negative Ur Leukocyte Esterase Negative Urine WBC (Auto) 3 Urine RBC (Auto) 4 Ur Epithelial Cells Rare Granular Casts 1 RPR Titer 10/24/17 06:30 WBC RBC Hgb Hct MCV MCH MCHC RDW Plt Count MPV Sodium Potassium Chloride Carbon Dioxide Anion Gap BUN Creatinine Creat Clearance w eGFR Random Glucose Calcium Total Bilirubin AST ALT Alkaline Phosphatase Total Protein Albumin Urine Color Urine Appearance Urine pH Ur Specific [place] Urine Protein Urine Glucose (UA) Urine Ketones Urine Blood Urine Nitrite Urine Bilirubin Urine Urobilinogen Ur Leukocyte Esterase Urine WBC (Auto) Urine RBC (Auto) Ur Epithelial Cells Granular Casts RPR Titer Nonreactive LOW HGB/HCT =8.9/26.5 GLC = 135 MG/DL RDW = 18.4 Assessment: 10/25/17 10:49 WITHDRAWAL SX ANEMIA Plan: CONTINUE DETOX FEOSOL 325 MG PO BID
[2017-10-25] MEDS ORDERED: NAPROXEN 500 MG TABLET (FP) PO PRN (10:55)
[2017-10-25] MEDS ORDERED: FERROUS SO4 325 MG TABLET (FP) PO ONE (11:20)
[2017-10-25] MEDS: CYCLOBENZAPRINE HCL 10 MG TABLET (FP) PO PRN ×2 (15:44→22:19)
[2017-10-25] MEDS: FERROUS SO4 325 MG TABLET (FP) PO SCH (17:24)
[2017-10-25] MEDS: THIAMINE HCL 100 MG TABLET (FP) PO SCH (22:17)
[2017-10-25] MEDS: traZODone HCL 50 MG TABLET (FP) PO SCH (22:18)
[2017-10-25] MEDS: hydrOXYzine PAMOATE 25 MG CAPSULE (FP) PO PRN (22:24)
[2017-10-26] MEDS: diazePAM 5 MG TABLET PO PRN ×3 (02:18→14:46)
[2017-10-26] MEDS: hydrOXYzine PAMOATE 25 MG CAPSULE (FP) PO PRN ×2 (02:18→17:31)
[2017-10-26] MEDS: FERROUS SO4 325 MG TABLET (FP) PO SCH ×2 (07:22→17:30)
[2017-10-26] MEDS ORDERED: METHADONE HCL 5 MG TABLET (FOR DETOX USE ONLY) PO ONE (10:00)
[2017-10-26] MEDS: NICOTINE 21 MG/24 HOURS TOPICAL PATCH TD SCH (10:42)
[2017-10-26] MEDS: PATIENT'S OWN MEDICATION (NON-FORMULARY) (Doxycycline Hyclate [Doxycycline Hyclate] 100 MG PO SCH ×2 (10:42→17:32)
[2017-10-26] MEDS: PRENATAL VITAMINS W/ FOLIC ACID TABLET (FP) PO SCH (10:42)
--- NOTE | 2017-10-26 12:16 | PN ---
BHS Progress Note (SOAP) Subjective: PT REPORTS DETOX TAPER PROCEEDING WELL. DECREASED ANXIETY,SWEATS,CHILLS AND FATIGUE. OOB AMBULATING WITH STEADY GAIT. Objective: 10/26/17 12:16 Vital Signs 10/26/17 10/26/17 06:17 09:13 Temperature 97 F L 97.1 F L Pulse Rate 73 80 Respiratory 18 16 Rate Blood Pressure 111/68 107/68 Laboratory Tests 10/23/17 10/24/17 10/24/17 20:30 06:30 06:30 WBC 5.5 RBC 3.28 L Hgb 8.9 L Hct 26.5 L D MCV 80.6 MCH 27.0 MCHC 33.4 RDW 18.4 H Plt Count 261 MPV 7.4 L Sodium 137 Potassium 3.7 Chloride 102 Carbon Dioxide 25 Anion Gap 10 BUN 14 Creatinine 1.1 Creat Clearance w eGFR > 60 Random Glucose 135 H D Calcium 8.5 Total Bilirubin 0.2 AST 23 D ALT 30 Alkaline Phosphatase 98 Total Protein 7.6 Albumin 2.8 L Urine Color Ltyellow Urine Appearance Clear Urine pH 7.0 Ur Specific [place] 1.010 Urine Protein Negative Urine Glucose (UA) Negative Urine Ketones Negative Urine Blood 1+ H Urine Nitrite Negative Urine Bilirubin Negative Urine Urobilinogen Negative Ur Leukocyte Esterase Negative Urine WBC (Auto) 3 Urine RBC (Auto) 4 Ur Epithelial Cells Rare Granular Casts 1 RPR Titer 10/24/17 06:30 WBC RBC Hgb Hct MCV MCH MCHC RDW Plt Count MPV Sodium Potassium Chloride Carbon Dioxide Anion Gap BUN Creatinine Creat Clearance w eGFR Random Glucose Calcium Total Bilirubin AST ALT Alkaline Phosphatase Total Protein Albumin Urine Color Urine Appearance Urine pH Ur Specific [place] Urine Protein Urine Glucose (UA) Urine Ketones Urine Blood Urine Nitrite Urine Bilirubin Urine Urobilinogen Ur Leukocyte Esterase Urine WBC (Auto) Urine RBC (Auto) Ur Epithelial Cells Granular Casts RPR Titer Nonreactive Assessment: 10/26/17 12:16 WITHDRAWAL SX Plan: CONTINUE DETOX
[2017-10-26] MEDS: ACETAMINOPHEN 325 MG TABLET (FP) PO PRN (20:07)
[2017-10-26] MEDS: THIAMINE HCL 100 MG TABLET (FP) PO SCH (22:24)
[2017-10-26] MEDS: CYCLOBENZAPRINE HCL 10 MG TABLET (FP) PO PRN (22:24)
[2017-10-26] MEDS: traZODone HCL 50 MG TABLET (FP) PO SCH (22:25)
[2017-10-27] MEDS ORDERED: METHADONE HCL 10 MG TABLET (FOR DETOX USE ONLY) PO ONE ×2 (09:00→10:00)
[2017-10-27] MEDS: FERROUS SO4 325 MG TABLET (FP) PO SCH (09:13)
[2017-10-27] MEDS: ACETAMINOPHEN 325 MG TABLET (FP) PO PRN (09:14)
[2017-10-27] MEDS ORDERED: METHADONE HCL 5 MG TABLET (FOR DETOX USE ONLY) PO ONE (09:30)
[2017-10-27] MEDS: PRENATAL VITAMINS W/ FOLIC ACID TABLET (FP) PO SCH (10:11)
[2017-10-27] MEDS: PATIENT'S OWN MEDICATION (NON-FORMULARY) (Doxycycline Hyclate [Doxycycline Hyclate] 100 MG PO SCH (10:12)
[2017-10-27] MEDS: NICOTINE 21 MG/24 HOURS TOPICAL PATCH TD SCH (10:12)
[2017-10-27 10:26] VITALS: BP 132/91; PULSE 87; TEMP 96.7
--- NOTE | 2017-10-27 19:06 | PN ---
BHS Progress Note (SOAP) Subjective: Patient denies current Detox symptoms and reports that he feels well overall. Objective: PATIENT A & O X 3, OBSERVED AMBULATING ON UNIT. NO ACUTE DISTRESS. 10/27/17 19:05 Vital Signs Temperature 96.7 F L 10/27/17 10:25 Pulse Rate 87 10/27/17 10:25 Respiratory Rate 18 10/27/17 10:25 Blood Pressure 132/91 10/27/17 10:25 O2 Sat by Pulse Oximetry (%) Laboratory Tests 10/23/17 10/24/17 10/24/17 20:30 06:30 06:30 WBC 5.5 RBC 3.28 L Hgb 8.9 L Hct 26.5 L D MCV 80.6 MCH 27.0 MCHC 33.4 RDW 18.4 H Plt Count 261 MPV 7.4 L Sodium 137 Potassium 3.7 Chloride 102 Carbon Dioxide 25 Anion Gap 10 BUN 14 Creatinine 1.1 Creat Clearance w eGFR > 60 Random Glucose 135 H D Calcium 8.5 Total Bilirubin 0.2 AST 23 D ALT 30 Alkaline Phosphatase 98 Total Protein 7.6 Albumin 2.8 L Urine Color Ltyellow Urine Appearance Clear Urine pH 7.0 Ur Specific [place] 1.010 Urine Protein Negative Urine Glucose (UA) Negative Urine Ketones Negative Urine Blood 1+ H Urine Nitrite Negative Urine Bilirubin Negative Urine Urobilinogen Negative Ur Leukocyte Esterase Negative Urine WBC (Auto) 3 Urine RBC (Auto) 4 Ur Epithelial Cells Rare Granular Casts 1 RPR Titer 10/24/17 06:30 WBC RBC Hgb Hct MCV MCH MCHC RDW Plt Count MPV Sodium Potassium Chloride Carbon Dioxide Anion Gap BUN Creatinine Creat Clearance w eGFR Random Glucose Calcium Total Bilirubin AST ALT Alkaline Phosphatase Total Protein Albumin Urine Color Urine Appearance Urine pH Ur Specific [place] Urine Protein Urine Glucose (UA) Urine Ketones Urine Blood Urine Nitrite Urine Bilirubin Urine Urobilinogen Ur Leukocyte Esterase Urine WBC (Auto) Urine RBC (Auto) Ur Epithelial Cells Granular Casts RPR Titer Nonreactive LABS NOTED. Assessment: 10/27/17 19:05 COMPLETION OF DETOX REGIMEN. Plan: PATIENT SCHEDULED FOR DISCHARGE FORM DETOX UNIT TODAY.
--- NOTE | 2017-10-27 19:11 | DS ---
[facility] Detox Discharge Summary Admission Date: 10/23/17 Discharge Date: 10/27/17 - History Present History: Cocaine Dependence, Opioid Dependence Additional Comments: PATIENT RETURNING TO [facility] ([place] TO RESUME PREVIOUSLY STARTED CARE FOR ABSCESS / WOUND ON NECK (PATIENT WAS TAKING PO ANTIBIOTICS IN INTERIM AND WHILE ADMITTED FOR DETOX). PATIENT WILL THEN LOOK INTO LOCAL 12-STEP / NA SUPPORT GROUP MEETINGS FOR AFTERCARE. PATIENT WAS DISCHARGED FROM DETOX UNIT IN STABLE MEDICAL CONDITION. Pertinent Past History: Insomnia, Anxiety, G.E.R.D., History of Bronchitis, History of Abscess of Neck, History of Neck Surgery, Nicotine Dependence, Weight Loss. - Physical Exam Results Vital Signs: Vital Signs Temperature 96.7 F L 10/27/17 10:25 Pulse Rate 87 10/27/17 10:25 Respiratory Rate 18 10/27/17 10:25 Blood Pressure 132/91 10/27/17 10:25 O2 Sat by Pulse Oximetry (%) Pertinent Admission Physical Exam Findings: WITHDRAWAL SYMPTOMS. Laboratory Tests 10/23/17 10/24/17 10/24/17 20:30 06:30 06:30 WBC 5.5 RBC 3.28 L Hgb 8.9 L Hct 26.5 L D MCV 80.6 MCH 27.0 MCHC 33.4 RDW 18.4 H Plt Count 261 MPV 7.4 L Sodium 137 Potassium 3.7 Chloride 102 Carbon Dioxide 25 Anion Gap 10 BUN 14 Creatinine 1.1 Creat Clearance w eGFR > 60 Random Glucose 135 H D Calcium 8.5 Total Bilirubin 0.2 AST 23 D ALT 30 Alkaline Phosphatase 98 Total Protein 7.6 Albumin 2.8 L Urine Color Ltyellow Urine Appearance Clear Urine pH 7.0 Ur Specific [place] 1.010 Urine Protein Negative Urine Glucose (UA) Negative Urine Ketones Negative Urine Blood 1+ H Urine Nitrite Negative Urine Bilirubin Negative Urine Urobilinogen Negative Ur Leukocyte Esterase Negative Urine WBC (Auto) 3 Urine RBC (Auto) 4 Ur Epithelial Cells Rare Granular Casts 1 RPR Titer 10/24/17 06:30 WBC RBC Hgb Hct MCV MCH MCHC RDW Plt Count MPV Sodium Potassium Chloride Carbon Dioxide Anion Gap BUN Creatinine Creat Clearance w eGFR Random Glucose Calcium Total Bilirubin AST ALT Alkaline Phosphatase Total Protein Albumin Urine Color Urine Appearance Urine pH Ur Specific [place] Urine Protein Urine Glucose (UA) Urine Ketones Urine Blood Urine Nitrite Urine Bilirubin Urine Urobilinogen Ur Leukocyte Esterase Urine WBC (Auto) Urine RBC (Auto) Ur Epithelial Cells Granular Casts RPR Titer Nonreactive LABS NOTED. - Treatment Hospital Course: Detox Protocol Followed, Detoxed Safely, Responded well, Discharged Condition Good Patient has Accepted a Rehab Referral to: PT. WILL PURSUE LOCAL 12-STEP/NA OUTPATIENT SUPPORT GROUP MEETINGS. - Medication Discharge Medications: Ambulatory Orders Doxycycline Hyclate 100 mg PO BID 10/23/17 - Diagnosis (1) Acute bronchitis Status: Acute Qualifiers: Bronchitis organism: unspecified organism Qualified Code(s): J20.9 - Acute bronchitis, unspecified (2) Cocaine dependence Status: Acute Qualifiers: Substance use status: uncomplicated Qualified Code(s): F14.20 - Cocaine dependence, uncomplicated (3) Insomnia Status: Acute Qualifiers: Insomnia type: unspecified Qualified Code(s): G47.00 - Insomnia, unspecified (4) Nicotine dependence Status: Acute Qualifiers: Nicotine product type: cigarettes Substance use status: in withdrawal Qualified Code(s): F17.213 - Nicotine dependence, cigarettes, with withdrawal (5) Opioid dependence with withdrawal Status: Acute (6) Weight loss Status: Acute (7) GERD (gastroesophageal reflux disease) Status: Chronic Qualifiers: Esophagitis presence: esophagitis presence not specified Qualified Code(s) : K21.9 - Gastro-esophageal reflux disease without esophagitis (8) Substance induced mood disorder Status: Acute (9) History of neck surgery Status: Chronic (10) Anxiety and depression Status: Suspected - AMA Did Patient Leave Against Medical Advice: No
[2017-10-28] MEDS ORDERED: METHADONE HCL 5 MG TABLET (FOR DETOX USE ONLY) PO ONE (06:00)
== END 2017-10-27 11:07 | disposition home or self-care (01) | DRG 774 ==
LOC: YASAS 12:48 → Y3N 15:56
PROVIDERS: ADMIT Surgery; ATTEND Surgery
PROC: HZ2ZZZZ Detoxification Services for Substance Abuse Treatment (ICD-10-PCS; principal; 2017-10-23)
DX: F13.20 Sedative, hypnotic or anxiolytic dependence, uncomplicated (principal); F14.20 Cocaine dependence, uncomplicated; F17.213 Nicotine dependence, cigarettes, with withdrawal; F19.24 Other psychoactive substance dependence with psychoactive substance-induced mood disorder; F41.8 Other specified anxiety disorders; G47.00 Insomnia, unspecified; D50.9 Iron deficiency anemia, unspecified; J20.9 Acute bronchitis, unspecified; R63.4 Abnormal weight loss; Z68.20 Body mass index [BMI] 20.0-20.9, adult; Z98.890 Other specified postprocedural states; L02.11 Cutaneous abscess of neck
CPT/HCPCS: 36415; 80053; 81003; 81015; 85027; 86593; 93005; 93010

== ENCOUNTER 2018-04-02 13:52 | Inpatient (IN) | payer OTHER ==
[2018-04-02 16:09] VITALS: BMI 20.3
--- NOTE | 2018-04-02 18:10 | HP ---
COWS - Scale Resting Pulse: 2= [place] 101-120 Sweatin= Chills/Flushing Restless Observation: 3= Extraneous Movement Pupil Size: 0= Normal to Room Light Bone or Joint Aches: 1= Mild Discomfort Runny Nose/ Eye Tearin= Runny Nose/Eyes GI Upset > 30mins: 1= Stomach Cramp Tremor Observation: 1= Tremor [place], Not Seen Yawning Observation: 1= 1-2x During Session Anxiety or Irritability: 1=Feels Anxious/Irritable Goose Flesh Skin: 0=Smooth Skin COWS Score: 13 CIWA Score - Admission Criteria [facility]AS[facility] Guidelines: Admission for Medically Managed Detox: Requires at least one of the followin. CIWA greater than 12 2. Seizures within the past 24 hours 3. Delirium tremens within the past 24 hours 4. Hallucinations within the past 24 hours 5. Acute intervention needed for co occurring medical disorder 6. Acute intervention needed for co occurring psychiatric disorder 7. Severe withdrawal that cannot be handled at a lower level of care (continued vomiting, continued diarrhea, abnormal vital signs) requiring intravenous medication and/or fluids 8. Admission [facility] Chief Complaint: Wants detox from opiates and cocaine. 33 yo with no medical problems and on no medications. Has been using heroin IV/ sniff 4-5 bags/day, and 1/2 gram/day of cocaine. Pt was last here in September 2017 for detox from opiates/cocaine- says he was able to stay away from drugs for about 4 months- restarted recently. Neg for HIV/HCV last month- when he was at [facility] last month. ISTOP/DUR- shows that he received 150 tabs of percocets 10mg on 03/08: pt states has been using more than usual number of pills and then using heroin. Says he is motivated to stop- does not want to be on methadone or Suboxone, will consider Vivitrol. Allergies/Adverse Reactions: Allergies Allergy/AdvReac Type Severity Reaction Status Date / Time No Known Allergies Allergy Verified 04/02/18 19:57 - Ebola screening Have you traveled outside of the country in the last 21 days: No (N) Have you had contact with anyone from an Ebola affected area: No Have you been sick,other than usual withdrawal symptoms: No Do you have a fever: No Patient History - Patient Medical History Hx Anemia: No Hx Asthma: No Hx Chronic Obstructive Pulmonary Disease (COPD): No Hx Cancer: No Hx Cardiac Disorders: No Hx Congestive Heart Failure: No Hx Hypertension: No Hx Hypercholesterolemia: No Hx Pacemaker: No HX Cerebrovascular Accident: No Hx Seizures: No Hx Dementia: No Hx Diabetes: No Hx Gastrointestinal Disorders: Yes (acid reflux) Hx Liver Disease: No Hx Genitourinary Disorders: No Hx Sexually Transmitted Disorders: No Hx Renal Disease (ESRD): No Hx Thyroid Disease: No Hx Human Immunodeficiency Virus (HIV): No (negative last 02/16 ) Hx Hepatitis C: No (negative) Hx Depression: No Hx Suicide Attempt: No Hx Bipolar Disorder: No Hx Schizophrenia: No - Patient Surgical History Past Surgical History: Yes Hx Neurologic Surgery: Yes (neck sx 02/16 spinal fusion) Hx Cataract Extraction: No Hx Cardiac Surgery: Yes (had heart valve infection- open heart surgery) Hx Lung Surgery: No Hx Breast Surgery: No Hx Breast Biopsy: No Hx Abdominal Surgery: No Hx Appendectomy: No Hx Cholecystectomy: No Hx Genitourinary Surgery: No Hx Orthopedic Surgery: Yes (R knee meniscus repair.2016) Anesthesia Reaction: No - PPD History Date: 04/11/17 Results: 0 mm - Smoking Cessation Smoking history: Current every day smoker Have you smoked in the past 12 months: Yes Aproximately how many cigarettes per day: 20 Cigars Per Day: 0 Hx Chewing Tobacco Use: No Initiated information on smoking cessation: Yes 'Breaking Loose' booklet given: 04/02/18 - Substances Abused Heroin Route: Injection Frequency: Daily Amount used: 5 BAGS Age of first use: 32 Date of Last Use: 04/02/18 Cocaine Route: Injection Frequency: Daily Amount used: 1/2 GRAM Age of first use: 32 Date of Last Use: 04/02/18 Family Disease History - Family Disease History Family Disease History: Other: Father (no contact), Mother (depression/anxiety) Admission Physical Exam BHS - Vital Signs Vital Signs: Vital Signs - 24 hr 04/02/18 16:03 Temperature 97.0 F L Pulse Rate 103 H Respiratory 20 Rate Blood Pressure 144/86 - Physical General Appearance: Yes: Within Normal Limits HEENTM: Yes: Within Normal Limits Respiratory: Yes: Within Normal Limits, Lungs Clear Neck: Yes: Within Normal Limits Breast: Yes: Breast Exam Deferred Cardiology: Yes: Within Normal Limits, Regular Rhythm, Regular Rate, S1, S2, Surgical Scar Abdominal: Yes: Within Normal Limits Genitourinary: Yes: Within Normal Limits Back: Yes: Within Normal Limits Musculoskeletal: Yes: Within Normal Limits Extremities: Yes: Within Normal Limits, Normal Inspection Neurological: Yes: Within Normal Limits, harness cleaner II-XII NML intact, Fully Oriented, Motor Strength 5/5 Integumentary: Yes: Within Normal Limits, Track [place] Lymphatic: Yes: Within Normal Limits - Diagnostic (1) Cocaine dependence Current Visit: Yes Status: Chronic Qualifiers: Substance use status: uncomplicated Qualified Code(s): F14.20 - Cocaine dependence, uncomplicated (2) Nicotine dependence Current Visit: Yes Status: Chronic Qualifiers: Nicotine product type: cigarettes Substance use status: in withdrawal Qualified Code(s): F17.213 - Nicotine dependence, cigarettes, with withdrawal (3) Opioid dependence with withdrawal Current Visit: Yes Status: Acute (4) Anxiety and depression Current Visit: Yes Status: Suspected BHS Breath Alcohol Content Breath Alcohol Content: 0 Urine Drug Screen - Results Drug Screen Negative: No Urine Drug Screen Results: NATE-Cocaine, OPI-Opiates, BZO-Benzodiazepines, FEN- Fentanyl
[2018-04-02] MEDS ORDERED: MENTHOL/PHENOL 1 EACH UD MM PRN (18:16)
[2018-04-02] MEDS ORDERED: MAG HYDROX/AL HYDROX/SIMETH 30 ML UNIT-DOSE CUP PO PRN (18:16)
[2018-04-02] MEDS ORDERED: P-EPHED 60MG/TRIPROLIDI 2.5MG TABLET PO PRN (18:16)
[2018-04-02] MEDS ORDERED: guaiFENesin/D-METHORPHAN HB 10 ML UNIT-DOSE CUPS PO PRN (18:16)
[2018-04-02] MEDS ORDERED: LOPERAMIDE HCL 2 MG CAPSULE PO PRN (18:16)
[2018-04-02] MEDS ORDERED: MAGNESIUM CITRATE 300 ML BOTTLE PO PRN (18:16)
[2018-04-02] MEDS ORDERED: ACETAMINOPHEN 325 MG TABLET (FP) PO PRN (18:16)
[2018-04-02] MEDS ORDERED: MAGNESIUM HYDROX 2400MG/30ML ORAL SUSPENSION 30 ML CUP PO PRN (18:16)
[2018-04-02] MEDS ORDERED: METHADONE HCL 10 MG TABLET (FOR DETOX USE ONLY) PO ONE ×2 (19:45→23:00)
[2018-04-02] MEDS: diazePAM 5 MG TABLET PO PRN (20:55)
[2018-04-02] MEDS ORDERED: MELATONIN 5 MG TABLETS PO PRN (22:00)
[2018-04-02] MEDS: THIAMINE HCL 100 MG TABLET (FP) PO SCH (22:31)
[2018-04-03] MEDS: diazePAM 5 MG TABLET PO PRN ×3 (09:42→22:15)
[2018-04-03] MEDS ORDERED: METHADONE HCL 10 MG TABLET (FOR DETOX USE ONLY) PO ONE (10:00)
[2018-04-03 10:12] LABS: HEMATOCRIT 37.6 % (35.4-49); HEMOGLOBIN 13.5 GM/dL (11.7-16.9); MCH 29.7 pg (25.7-33.7); MCHC 35.8 g/dl (32.0-35.9); MEAN PLT VOLUME 7.9 fl (7.5-11.1); PLATELET COUNT 201 K/MM3 (134-434); RBC 4.54 M/mm3 (4.00-5.60); RDW 14.1 % (11.9-15.9); WHITE BLOOD COUNT 6.2 K/mm3 (4.0-10.0)
[2018-04-03] MEDS: PRENATAL VITAMINS W/ FOLIC ACID TABLET (FP) PO SCH (10:14)
[2018-04-03] MEDS: cloNIDine HCL 0.1 MG TABLET PO PRN ×2 (10:14→18:43)
[2018-04-03] MEDS: NICOTINE 21 MG/24 HOURS TOPICAL PATCH TD SCH (10:15)
[2018-04-03 11:22] LABS: ALBUMIN 3.1 g/dl (3.4-5.0); ALK PHOS 86 U/L (45-117); ANION GAP 7 MMOL/L (8-16); BILIRUBIN,TOTAL 0.4 mg/dL (0.2-1); BLOOD UREA NITROGEN 8 mg/dL (7-18); CALCIUM 8.4 mg/dL (8.5-10.1); CHLORIDE 107 mmol/L (98-107); CO2 26 mmol/L (21-32); CREATININE 0.7 mg/dL (0.55-1.3); GLUCOSE,RANDOM 93 mg/dL (74-106); POTASSIUM 3.6 mmol/L (3.5-5.1); SGOT/AST 10 U/L (15-37); SGPT/ALT 21 U/L (13-61); SODIUM 139 mmol/L (136-145); TOT PROT 6.4 g/dl (6.4-8.2)
--- NOTE | 2018-04-03 13:20 | PN ---
BHS COWS - Scale Resting Pulse: 0= [place] 80 or Below Sweatin=Flushed/Facial Moisture Restless Observation: 0= Sits Still Pupil Size: 1= Pupils >than Normal Bone or Joint Aches: 1= Mild Discomfort Runny Nose/ Eye Tearin= Constantly Teary/Runny GI Upset > 30mins: 1= Stomach Cramp Tremor Observation of Outstretched Hands: 2= Slight Tremor Visible Yawning Observation: 1= 1-2x During Session Anxiety or Irritability: 0= None Goose Flesh Skin: 0=Smooth Skin COWS Score: 12 BHS Progress Note (SOAP) Subjective: Day 1 of opioid detopx. C/O runny nose, chills, headache. Asking for a slightly different regimen (methadone) that "works better for me." Been to inpatient detox multiple times. Objective: 04/03/18 13:17 Vital Signs - 24 hr 04/02/18 04/02/18 04/03/18 16:03 22:06 00:21 Temperature 97.0 F L 100.2 F H Pulse Rate 103 H 111 H Respiratory 20 18 18 Rate Blood Pressure 144/86 137/77 04/03/18 04/03/18 04/03/18 03:40 06:37 09:05 Temperature 97.2 F L 97.0 F L Pulse Rate 71 79 Respiratory 18 18 18 Rate Blood Pressure 131/73 131/84 Lying in bed, sleeping, arousable. Rhinorrhea. NAD.Facial flushing. Thin, unkempt. Assessment: 04/03/18 13:18 Opioid Use Disorder: Continue methadone taper. Discussed necessity for MAT after discharge. He want to go on vivitrol. Rhinorrhea: Nasal decongestant.
--- NOTE | 2018-04-03 17:15 | CONSULT ---
[facility] Psychiatric Consult - Data Date of interview: 04/03/18 Admission source: [facility] Identifying data: Readmission to [facility] for this 33 y/o male seeking detoxification treatment, on , for heroin and cocaine dependence. Patient is a common-law spouse, a father of two, domiciled and supported on Workman's Compensation benefits. Substance Abuse History: Confirmed by patient in this session. Details in current [facility] report : Smoking history: Current every day smoker. Have you smoked in the past 12 months: Yes. Aproximately how many cigarettes per day: 20. Cigars Per Day: 0. Hx Chewing Tobacco Use: No. Initiated information on smoking cessation: Yes. 'Breaking Loose' booklet given: 04/02/18 Medical History: History of injury to cervical spine (job-related), spinal fusion (01/2017) and past history of orthosurgery (torn meniscus in right knee). Psychiatric History: Patient denies history of psychiatric hospitalizations. He used to be on xanax and adderall years ago. Was diagnosed with Anxiety Disorder. Dropped out of [facility]PD care in May 2016. Has been off psychotropic medications for months. Mr Sanchez denies history of suicide attempts. Physical/Sexual Abuse/Trauma History: Patient denies. Additional Comment: Urine Drug Screen Results: NATE-Cocaine, OPI-Opiates, BZO- Benzodiazepines, FEN-Fentanyl. Noted. Mental Status Exam - Mental Status Exam Alert and Oriented to: Time, Place, Person Cognitive Function: Good Patient Appearance: Unkempt, Disheveled Mood: Nervous, Withdrawn, Anxious Affect: Mood Congruent, Constricted Patient Behavior: Fatigued, Cooperative Speech Pattern: Clear Voice Loudness: Normal Thought Process: Goal Oriented Thought Disorder: Not Present Hallucinations: Denies Suicidal Ideation: Denies Homicidal Ideation: Denies Insight/Judgement: Poor Sleep: Poorly, Difficulty falling asleep Appetite: Good Muscle strength/Tone: Normal Gait/Station: Normal Psychiatric Findings - Problem List ([place] 1, 2,3) (1) Opioid dependence with withdrawal Current Visit: Yes Status: Acute (2) Cocaine dependence Current Visit: Yes Status: Chronic Qualifiers: Substance use status: uncomplicated Qualified Code(s): F14.20 - Cocaine dependence, uncomplicated (3) Nicotine dependence Current Visit: Yes Status: Chronic Qualifiers: Nicotine product type: cigarettes Substance use status: in withdrawal Qualified Code(s): F17.213 - Nicotine dependence, cigarettes, with withdrawal (4) Substance induced mood disorder Current Visit: Yes Status: Chronic (5) Insomnia Current Visit: Yes Status: Chronic Qualifiers: Insomnia type: unspecified Qualified Code(s): G47.00 - Insomnia, unspecified - Initial Treatment Plan Initial Treatment Plan: Psychoeducation. Sleep hygiene. Detoxification in progress. Trazodone 50 mg po hs. Patient is made aware of the risk of priapism. NA meetings. Motivational rounds. Mr Sanchez is in agreement with this plan of care. Observation.
[2018-04-03 18:43] LABS: URINE APPEARANCE CLEAR; URINE BILIRUBIN NEGATIVE (<2.0 mg/dL); URINE COLOR AMBER; URINE GLUCOSE (UA) NEGATIVE (NEGATIVE); URINE KETONE NEGATIVE (NEGATIVE); URINE LEUK ESTERASE NEGATIVE (NEGATIVE); URINE NITRITE NEGATIVE (NEGATIVE); URINE PROTEIN 1+ (NEGATIVE); URINE UROBILINOGEN 4.0 E.U/dl mg/dL (0.2-1.0)
[2018-04-03] MEDS: IBUPROFEN 400 MG TABLET (FP) PO PRN (18:43)
[2018-04-03 18:59] LABS: EPI CELLS RARE /HPF (FEW); URINE MUCUS RARE
[2018-04-03] MEDS: THIAMINE HCL 100 MG TABLET (FP) PO SCH (22:13)
[2018-04-03] MEDS: traZODone HCL 50 MG TABLET (FP) PO SCH (22:13)
[2018-04-03] MEDS: FLUTICASONE PROP 0.05% 16 GM NASAL SPRAY NS SCH (23:07)
[2018-04-04] MEDS: diazePAM 5 MG TABLET PO PRN ×4 (05:55→19:19)
[2018-04-04] MEDS ORDERED: METHADONE HCL 5 MG TABLET (FOR DETOX USE ONLY) PO ONE (10:00)
[2018-04-04] MEDS: PRENATAL VITAMINS W/ FOLIC ACID TABLET (FP) PO SCH (10:23)
[2018-04-04] MEDS: FLUTICASONE PROP 0.05% 16 GM NASAL SPRAY NS SCH ×2 (10:23→22:37)
[2018-04-04] MEDS: cloNIDine HCL 0.1 MG TABLET PO PRN (10:23)
[2018-04-04] MEDS: NICOTINE 21 MG/24 HOURS TOPICAL PATCH TD SCH (10:24)
--- NOTE | 2018-04-04 16:21 | PN ---
BHS COWS - Scale Resting Pulse: 1= [place] 81-100 Sweatin= Chills/Flushing Restless Observation: 0= Sits Still Pupil Size: 0= Normal to Room Light Bone or Joint Aches: 1= Mild Discomfort Runny Nose/ Eye Tearin= Runny Nose/Eyes GI Upset > 30mins: 0= None Tremor Observation of Outstretched Hands: 0= None Yawning Observation: 2= >3x During Session Anxiety or Irritability: 2=Irritable/Anxious Goose Flesh Skin: 0=Smooth Skin COWS Score: 9 BHS Progress Note (SOAP) Subjective: Fatigue, Sweating, Interrupted Sleep. Objective: PATIENT A & O X 3, OBSERVED AMBULATING ON UNIT. IN NO ACUTE DISTRESS. 04/04/18 16:19 Vital Signs Temperature 97.9 F 04/04/18 14:09 Pulse Rate 83 04/04/18 14:09 Respiratory Rate 18 04/04/18 14:09 Blood Pressure 111/61 04/04/18 14:09 O2 Sat by Pulse Oximetry (%) Laboratory Tests 04/03/18 04/03/18 04/03/18 08:00 08:00 08:00 WBC 6.2 RBC 4.54 Hgb 13.5 Hct 37.6 D MCV 83.0 MCH 29.7 MCHC 35.8 RDW 14.1 D Plt Count 201 D MPV 7.9 Sodium 139 Potassium 3.6 Chloride 107 Carbon Dioxide 26 Anion Gap 7 L BUN 8 Creatinine 0.7 Creat Clearance w eGFR > 60 Random Glucose 93 Calcium 8.4 L Total Bilirubin 0.4 AST 10 L ALT 21 Alkaline Phosphatase 86 Total Protein 6.4 Albumin 3.1 L Urine Color Urine Appearance Urine pH Ur Specific [place] Urine Protein Urine Glucose (UA) Urine Ketones Urine Blood Urine Nitrite Urine Bilirubin Urine Urobilinogen Ur Leukocyte Esterase Urine WBC (Auto) Urine RBC (Auto) Ur Epithelial Cells Urine Mucus RPR Titer Nonreactive 04/03/18 10:31 WBC RBC Hgb Hct MCV MCH MCHC RDW Plt Count MPV Sodium Potassium Chloride Carbon Dioxide Anion Gap BUN Creatinine Creat Clearance w eGFR Random Glucose Calcium Total Bilirubin AST ALT Alkaline Phosphatase Total Protein Albumin Urine Color [place] Urine Appearance Clear Urine pH 7.0 Ur Specific [place] 1.026 Urine Protein 1+ H Urine Glucose (UA) Negative Urine Ketones Negative Urine Blood Negative Urine Nitrite Negative Urine Bilirubin Negative Urine Urobilinogen 4.0 e.u/dl Ur Leukocyte Esterase Negative Urine WBC (Auto) 1 Urine RBC (Auto) 5 Ur Epithelial Cells Rare Urine Mucus Rare RPR Titer LABS NOTED. Assessment: 04/04/18 16:20 WITHDRAWAL SYMPTOMS. Plan: CONTINUE DETOX. INCREASE DAILY PO FLUID INTAKE. PATIENT REPORTS THAT HE IS TOLERATING CURRENT DETOX SYMPTOMS WELL. AT PATIENT'S REQUEST, CURRENT DETOX MEDICATION REGIMEN (METHADONE) MODIFIED SO THAT PATIENT MAY BE DISCHARGED ON 04/06/2018.
[2018-04-04] MEDS: THIAMINE HCL 100 MG TABLET (FP) PO SCH (22:38)
[2018-04-04] MEDS: traZODone HCL 50 MG TABLET (FP) PO SCH (22:38)
[2018-04-05] MEDS: diazePAM 5 MG TABLET PO PRN ×3 (06:35→15:40)
[2018-04-05] MEDS: IBUPROFEN 400 MG TABLET (FP) PO PRN (06:35)
[2018-04-05] MEDS ORDERED: METHADONE HCL 10 MG TABLET (FOR DETOX USE ONLY) PO ONE (10:00)
[2018-04-05] MEDS ORDERED: METHADONE HCL 5 MG TABLET (FOR DETOX USE ONLY) PO ONE (10:00)
[2018-04-05] MEDS: FLUTICASONE PROP 0.05% 16 GM NASAL SPRAY NS SCH ×2 (11:05→23:09)
[2018-04-05] MEDS: PRENATAL VITAMINS W/ FOLIC ACID TABLET (FP) PO SCH (11:06)
[2018-04-05] MEDS: NICOTINE 21 MG/24 HOURS TOPICAL PATCH TD SCH (11:06)
--- NOTE | 2018-04-05 17:49 | PN ---
[facility] Progress Note (SOAP) Subjective: Sweating. Objective: PATIENT A & O X 3, OBSERVED AMBULATING ON UNIT. IN NO ACUTE DISTRESS. 04/05/18 17:49 Vital Signs Temperature 98.2 F 04/05/18 15:42 Pulse Rate 75 04/05/18 15:42 Respiratory Rate 18 04/05/18 15:42 Blood Pressure 135/99 04/05/18 15:42 O2 Sat by Pulse Oximetry (%) Laboratory Tests 04/03/18 04/03/18 04/03/18 08:00 08:00 08:00 WBC 6.2 RBC 4.54 Hgb 13.5 Hct 37.6 D MCV 83.0 MCH 29.7 MCHC 35.8 RDW 14.1 D Plt Count 201 D MPV 7.9 Sodium 139 Potassium 3.6 Chloride 107 Carbon Dioxide 26 Anion Gap 7 L BUN 8 Creatinine 0.7 Creat Clearance w eGFR > 60 Random Glucose 93 Calcium 8.4 L Total Bilirubin 0.4 AST 10 L ALT 21 Alkaline Phosphatase 86 Total Protein 6.4 Albumin 3.1 L Urine Color Urine Appearance Urine pH Ur Specific [place] Urine Protein Urine Glucose (UA) Urine Ketones Urine Blood Urine Nitrite Urine Bilirubin Urine Urobilinogen Ur Leukocyte Esterase Urine WBC (Auto) Urine RBC (Auto) Ur Epithelial Cells Urine Mucus RPR Titer Nonreactive 04/03/18 10:31 WBC RBC Hgb Hct MCV MCH MCHC RDW Plt Count MPV Sodium Potassium Chloride Carbon Dioxide Anion Gap BUN Creatinine Creat Clearance w eGFR Random Glucose Calcium Total Bilirubin AST ALT Alkaline Phosphatase Total Protein Albumin Urine Color Jyoti Urine Appearance Clear Urine pH 7.0 Ur Specific [place] 1.026 Urine Protein 1+ H Urine Glucose (UA) Negative Urine Ketones Negative Urine Blood Negative Urine Nitrite Negative Urine Bilirubin Negative Urine Urobilinogen 4.0 e.u/dl Ur Leukocyte Esterase Negative Urine WBC (Auto) 1 Urine RBC (Auto) 5 Ur Epithelial Cells Rare Urine Mucus Rare RPR Titer LABS NOTED. Assessment: 04/05/18 17:49 WITHDRAWAL SYMPTOMS. Plan: CONTINUE DETOX. PATIENT SCHEDULED FOR D/C TOMORROW.
[2018-04-05] MEDS: hydrOXYzine PAMOATE 50 MG CAPSULE (FP) PO PRN (20:12)
[2018-04-05] MEDS: traZODone HCL 50 MG TABLET (FP) PO SCH (23:02)
[2018-04-05] MEDS: THIAMINE HCL 100 MG TABLET (FP) PO SCH (23:02)
[2018-04-06] MEDS: hydrOXYzine PAMOATE 50 MG CAPSULE (FP) PO PRN (05:42)
[2018-04-06] MEDS ORDERED: METHADONE HCL 5 MG TABLET (FOR DETOX USE ONLY) PO ONE (06:00)
[2018-04-06 06:49] VITALS: BP 123/69; PULSE 80; TEMP 97.6
--- NOTE | 2018-04-06 08:29 | PN ---
S Progress Note (SOAP) Subjective: alert,no complaint Objective: 04/06/18 08:28 Vital Signs Temperature 97.6 F 04/06/18 06:47 Pulse Rate 80 04/06/18 06:47 Respiratory Rate 18 04/06/18 06:47 Blood Pressure 123/69 04/06/18 06:47 O2 Sat by Pulse Oximetry (%) Assessment: 04/06/18 08:28 detox completed,no withdrawal symptom Plan: discharge today,follow up with after care program as arrangement
--- NOTE | 2018-04-06 08:33 | DS ---
[facility] Detox Discharge Summary Admission Date: 04/02/18 Discharge Date: 04/06/18 - History Present History: Cocaine Dependence, Opioid Dependence Additional Comments: follow up with aftercare program as arrangement Pertinent Past History: nicotine dependence history of neck surgery weight loss - Physical Exam Results Vital Signs: Vital Signs Temperature 97.6 F 04/06/18 06:47 Pulse Rate 80 04/06/18 06:47 Respiratory Rate 18 04/06/18 06:47 Blood Pressure 123/69 04/06/18 06:47 O2 Sat by Pulse Oximetry (%) Pertinent Admission Physical Exam Findings: withdrawal symptom Vital Signs Temperature 97.6 F 04/06/18 06:47 Pulse Rate 80 04/06/18 06:47 Respiratory Rate 18 04/06/18 06:47 Blood Pressure 123/69 04/06/18 06:47 O2 Sat by Pulse Oximetry (%) Laboratory Last Values WBC 6.2 K/mm3 (4.0-10.0) 04/03/18 08:00 RBC 4.54 M/mm3 (4.00-5.60) 04/03/18 08:00 Hgb 13.5 GM/dL (11.7-16.9) 04/03/18 08:00 Hct 37.6 % (35.4-49) D 04/03/18 08:00 MCV 83.0 fl (80-96) 04/03/18 08:00 MCH 29.7 pg (25.7-33.7) 04/03/18 08:00 MCHC 35.8 g/dl (32.0-35.9) 04/03/18 08:00 RDW 14.1 % (11.9-15.9) D 04/03/18 08:00 Plt Count 201 K/MM3 (134-434) D 04/03/18 08:00 MPV 7.9 fl (7.5-11.1) 04/03/18 08:00 Sodium 139 mmol/L (136-145) 04/03/18 08:00 Potassium 3.6 mmol/L (3.5-5.1) 04/03/18 08:00 Chloride 107 mmol/L (98-107) 04/03/18 08:00 Carbon Dioxide 26 mmol/L (21-32) 04/03/18 08:00 Anion Gap 7 MMOL/L (8-16) L 04/03/18 08:00 BUN 8 mg/dL (7-18) 04/03/18 08:00 Creatinine 0.7 mg/dL (0.55-1.3) 04/03/18 08:00 Creat Clearance w eGFR > 60 (>60) 04/03/18 08:00 Random Glucose 93 mg/dL (74-106) 04/03/18 08:00 Calcium 8.4 mg/dL (8.5-10.1) L 04/03/18 08:00 Total Bilirubin 0.4 mg/dL (0.2-1) 04/03/18 08:00 AST 10 U/L (15-37) L 04/03/18 08:00 ALT 21 U/L (13-61) 04/03/18 08:00 Alkaline Phosphatase 86 U/L (45-117) 04/03/18 08:00 Total Protein 6.4 g/dl (6.4-8.2) 04/03/18 08:00 Albumin 3.1 g/dl (3.4-5.0) L 04/03/18 08:00 Urine Color Jyoti 04/03/18 10:31 Urine Appearance Clear 04/03/18 10:31 Urine pH 7.0 (5.0-8.0) 04/03/18 10:31 Ur Specific [place] 1.026 (1.010-1.035) 04/03/18 10:31 Urine Protein 1+ (NEGATIVE) H 04/03/18 10:31 Urine Glucose (UA) Negative (NEGATIVE) 04/03/18 10:31 Urine Ketones Negative (NEGATIVE) 04/03/18 10:31 Urine Blood Negative (NEGATIVE) 04/03/18 10:31 Urine Nitrite Negative (NEGATIVE) 04/03/18 10:31 Urine Bilirubin Negative (<2.0 mg/dL) 04/03/18 10:31 Urine Urobilinogen 4.0 e.u/dl mg/dL (0.2-1.0) 04/03/18 10:31 Ur Leukocyte Esterase Negative (NEGATIVE) 04/03/18 10:31 Urine WBC (Auto) 1 /hpf (3-5) 04/03/18 10:31 Urine RBC (Auto) 5 /hpf (0-3) 04/03/18 10:31 Ur Epithelial Cells Rare /HPF (FEW) 04/03/18 10:31 Urine Mucus Rare 04/03/18 10:31 RPR Titer Nonreactive (NONREACTIVE) 04/03/18 08:00 - Treatment Hospital Course: Detox Protocol Followed, Detoxed Safely, Responded well, Discharged Condition Good Patient has Accepted a Rehab Referral to: declined - Medication Discharge Medications: Ambulatory Orders Oxycodone HCl/Acetaminophen [Percocet 10-325 mg Tablet] 1 each PO 5XD 04/02/18 - Diagnosis (1) Opioid dependence with withdrawal Current Visit: Yes Status: Acute (2) Cocaine dependence Current Visit: Yes Status: Chronic Qualifiers: Substance use status: uncomplicated Qualified Code(s): F14.20 - Cocaine dependence, uncomplicated (3) Anxiety and depression Current Visit: Yes Status: Suspected (4) Weight loss Current Visit: No Status: Acute (5) History of neck surgery Current Visit: No Status: Chronic - AMA Did Patient Leave Against Medical Advice: No
[2018-04-06] MEDS ORDERED: METHADONE HCL 10 MG TABLET (FOR DETOX USE ONLY) PO ONE (10:00)
[2018-04-07] MEDS ORDERED: METHADONE HCL 5 MG TABLET (FOR DETOX USE ONLY) PO ONE (06:00)
== END 2018-04-06 09:09 | disposition home or self-care (01) | DRG 773 ==
LOC: YASAS 13:52 → Y6N 19:11
PROC: HZ2ZZZZ Detoxification Services for Substance Abuse Treatment (ICD-10-PCS; principal; 2018-04-02)
DX: F11.23 Opioid dependence with withdrawal (principal); F14.20 Cocaine dependence, uncomplicated; F17.213 Nicotine dependence, cigarettes, with withdrawal; F41.9 Anxiety disorder, unspecified; F32.9 Major depressive disorder, single episode, unspecified; F19.24 Other psychoactive substance dependence with psychoactive substance-induced mood disorder; G47.00 Insomnia, unspecified; J31.0 Chronic rhinitis; K21.9 Gastro-esophageal reflux disease without esophagitis; Z98.1 Arthrodesis status
CPT/HCPCS: 36415; 80053; 81003; 81015; 85027; 86593; J0735